=== PATIENT | female | born 1985 | race Caucasian/White ===

== ENCOUNTER 2021-03-23 16:17 | Outpatient (CLI) | payer OTHER, SELFPAY ==
[2021-03-23 16:36] LABS: Hematocrit 42.1 % (37.0-47.0); Mean Corpuscular HGB Conc 33.3 g/dl (32-36); Mean Corpuscular Hemoglobin 28.9 pg (26-34); Mean Corpuscular Volume 86.8 fl (80-100); Mean Platelet Volume 9.2 fl (7.4-10.4); Platelet Count Result 319 k/mm3 (150-375); Red Blood Count 4.85 M/mm3 (4.2-5.4); Red Cell Distribution Width 13.1 % (11.5-14.5); White Blood Count 10.6 K/mm3 (4.5-10.0)
[2021-03-23 16:50] LABS: Alanine Aminotransferase 24 U/L (4-35); Albumin Level 4.2 g/dL (3.5-5.1); Alkaline Phosphatase 93 U/L (38-126); Anion Gap 7 mmol/L (8-16); Aspartate Amino Transferase 28 U/L (14-36); Bilirubin,Total < 0.1 mg/dL (0.2-1.3); Blood Urea Nitrogen 12 mg/dL (7-17); Calcium 9.1 mg/dL (8.4-10.2); Carbon Dioxide 28 mmol/L (22-30); Chloride 104 mmol/L (98-107); Estimated Glomerular Filt Rate > 60; Glucose 103 mg/dL (65-105); Potassium 3.5 mmol/L (3.4-5.0); Sodium 139 mmol/L (137-145)
[2021-03-23 20:37] LABS: Erythrocyte Sedimentation Rate 17 mm/hr (0-20)
[2021-04-01 07:55] LABS: Tissue Transglutaminase IgG Ab 2 U/mL (<6)
[2021-04-01 07:56] LABS: Tissue Transglutaminase IgA Ab 1 U/mL (<4)
== END 2021-03-23 16:18 | disposition home or self-care (01) ==
LOC: ANHLAB 16:20
PROVIDERS: PCP Nurse Practitioner Family; Visit Provider Nurse Practitioner Family
DX: R14.0 Abdominal distension (gaseous) (principal); R19.7 Diarrhea, unspecified
CPT/HCPCS: 36415; 80053; 83516; 84443; 85027; 85652; 86140

== ENCOUNTER 2021-06-23 00:11 | Day surgery (SDC) | payer OTHER, SELFPAY ==
[2021-06-07 14:36] VITALS: BMI 28.2
[2021-06-23 08:08] VITALS: BP 122/69; PULSE 79; RESP 16; TEMP 36.1; O2SAT 98
[2021-06-23] MEDS: LACTATED RINGERS 1,000 ML 150 ML IV CONT (08:11)
--- NOTE | 2021-06-23 08:51 | P.PNAN_ITS ---
Anes - Initial Pre Proc Eval Procedure: Operation Date: 06/23/21 09:15 Proposed Procedures p Esophagogastroduodenoscopy & Colonoscopy - Luis Enrique Brown MD Date/Time: 06/23/21 08:51 Surgeon: Luis Enrique Brown MD Pre Op Diagnosis: gerd, change in bowel habit Patient Data Age: 35 Gender: F Height: 1.57 m Weight: 73.5 kg Last Vital Signs Temp 96.9 F L 06/23/21 08:08 Pulse 79 06/23/21 08:08 Resp 16 06/23/21 08:08 BP 122/69 06/23/21 08:08 Pulse Ox 98 06/23/21 08:08 Allergies Allergy/AdvReac Type Severity Reaction Status Date / Time No Known Allergies Allergy Verified 06/23/21 08:07 Home Medications Medication Instructions Recorded Confirmed Type dicyclomine 10 mg capsule See Rx Instructions .ROUTE 05/11/21 Rx .COMPLEX #90 cap Patient hx anesthesia problems: none Family hx anesthesia problems: none [facility] Past Medical History Medical History (Updated 04/27/21 @ 15:04 by Prudence Link APN-C) Abdominal bloating Alternating constipation and diarrhea BMI 30.0-30.9,adult Social History Social History Years smoked: 8 Smoking status: Never smoker Smokeless tobacco user: chewing tobacco Alcohol intake: never Substance use: never Gender identity (if verbalized by the patient): Female Anes - Eval Final PreProcedure Day of Procedure 06/23/21 08:51 Patient weight: overweight Heart: regular rate and rhythm Lungs: clear to auscultation Airway: Mallampati scale class II Neurological: alert and oriented Last oral intake: >/= 8 hours ASA classification: II Emergent: no Anesthetic plan: proceed Anesthesia type and monitoring: general GIVS and standard monitoring Informed Consent: The patient's anesthetic plan and its attendant risks and benefits were discussed with the patient/family/POA. Questions were solicited and answers provided to the satisfaction of the patient/family/POA.
--- NOTE | 2021-06-23 08:59 | PM.HPGS ---
History of Present Illness History of Present Illness Consent: Risks, benefits, and alternatives have been discussed and questions answered. Patient agrees to proceed with procedure. Chief complaint: gerd, change in bowel habit Narrative: Halle Vasquez is a 35 year old female with bloating, alternating diarrhea and constipation, bentyl prn but will get blurry vision Review of Systems Constitutional: Constitutional: Denies headache(s) and Denies weakness Eyes: Eyes: Denies blurry vision ENT: Reports Normal hearing present, Denies headache(s) and Denies neck pain Cardiovascular: Cardiovascular: Denies chest pain and Denies dyspnea Respiratory: Respiratory: Denies dyspnea Gastrointestinal: Gastrointestinal: Reports no additional gastrointestinal complaints Genitourinary: Genitourinary: Denies dysuria Musculoskeletal: Musculoskeletal: Denies neck pain Integumentary/Breasts: Skin/Breast: Denies dry skin Neurologic: Reports Normal hearing present, Denies headache(s) and Denies weakness Psychiatric: Psychiatric: Denies anxiety Endocrine: Endocrine: Denies change in body appearance Hematologic/Lymphatic: Hematologic/Lymphatic: Denies easy bleeding Allergic/Immunologic: Allergic/Immunologic: Denies urticaria [facility] Past Medical History Medical History (Updated 04/27/21 @ 15:04 by Prudence Link, SHOE WORKER-C) Abdominal bloating Alternating constipation and diarrhea BMI 30.0-30.9,adult Social History Social History Years smoked: 8 Smoking status: Never smoker Smokeless tobacco user: chewing tobacco Alcohol intake: never Substance use: never Gender identity (if verbalized by the patient): Female Meds Home Medications and Allergies Home Medications Medication Instructions Recorded Confirmed Type dicyclomine 10 mg capsule See Rx Instructions .ROUTE 05/11/21 Rx .COMPLEX #90 cap Allergies Allergy/AdvReac Type Severity Reaction Status Date / Time No Known Allergies Allergy Verified 06/23/21 08:07 Vital Signs Vital Signs - 24 hr 06/23/21 08:08 Temperature 96.9 F L Pulse Rate 79 Respiratory Rate 16 Blood Pressure 122/69 Pulse Oximetry 98 Exam Const: General: comfortable and no acute distress HENMT: General nose exam: Normal nares present Eyes: General: appearance normal, both eyes and all related structures Neck: Neck: no JVD Resp: Auscultation: clear to auscultation bilaterally Cardio: Rate: regular rate Rhythm: regular rhythm GI: Inspection: non-distended GI Palp: Yes Soft to palpation Skin: General skin exam: normal color Neuro: General: gait normal Speech: normal speech Extrem: General: normal to inspection Psych: Mental Status: mental status grossly normal Assessment and Plan Assessment and plan (1) Alternating constipation and diarrhea: Code(s): R19.8 - Other specified symptoms and signs involving the digestive system and abdomen Status: Acute Assessment and Plan: colonoscopy with random bx (2) Abdominal bloating: Code(s): R14.0 - Abdominal distension (gaseous) Status: Acute Assessment and Plan: egd with bx
[2021-06-23] MEDS: BENZOCAINE (*SP) 60 ML SPRAY CAN (HURRICAINE) 1 SPRAY MUCOUS MEM (09:05)
[2021-06-23 09:30] VITALS: BP 91/59; PULSE 102; RESP 27; O2SAT 95
[2021-06-23 09:40] VITALS: BP 102/61; PULSE 99; RESP 27; O2SAT 98
[2021-06-23 09:50] VITALS: BP 96/60; PULSE 78; RESP 19; O2SAT 99
== END 2021-06-23 09:55 | disposition home or self-care (01) ==
PROVIDERS: PCP Nurse Practitioner Family; Visit Provider Internal Medicine Gastroenterology
PROC: 0DJ08ZZ Inspection of Upper Intestinal Tract, Via Natural or Artificial Opening Endoscopic (ICD-10-PCS; CPT 43235; principal; 2021-06-23 09:15)
DX: Z12.11 Encounter for screening for malignant neoplasm of colon (principal); K29.50 Unspecified chronic gastritis without bleeding; R19.7 Diarrhea, unspecified; K59.00 Constipation, unspecified; K64.8 Other hemorrhoids; R14.0 Abdominal distension (gaseous); K44.9 Diaphragmatic hernia without obstruction or gangrene; Z87.19 Personal history of other diseases of the digestive system
CPT/HCPCS: 45380; 43239; 88305; J2704; J7120

== ENCOUNTER 2021-08-31 11:12 | Emergency (ER) | payer OTHER, SELFPAY ==
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
[2021-08-31 12:15] VITALS: BP 110/70; PULSE 72; RESP 16; TEMP 36.8; O2SAT 98
== END 2021-08-31 13:05 | disposition home or self-care (01) ==
PROVIDERS: Emergency Provider Family Medicine
DX: M62.838 Other muscle spasm (principal); H93.11 Tinnitus, right ear; F17.220 Nicotine dependence, chewing tobacco, uncomplicated; V49.40XA Driver injured in collision with unspecified motor vehicles in traffic accident, initial encounter
CPT/HCPCS: 99283

== ENCOUNTER 2021-10-11 10:40 | Outpatient (CLI) | payer OTHER, SELFPAY | END 2021-10-11 10:41 | disposition home or self-care (01) | LOC: ANHAUDIO 10:41 | PROVIDERS: Visit Provider Nurse Practitioner Family | DX: H90.41 Sensorineural hearing loss, unilateral, right ear, with unrestricted hearing on the contralateral side (principal) | CPT/HCPCS: 92557; 92567 ==

== ENCOUNTER 2021-10-24 13:34 | Outpatient (CLI) | payer OTHER, SELFPAY ==
--- NOTE | ~2021-10-24 | CT_ITS ---
EXAMINATION: CT IAC/mastoids BI wo con DATE: 10/24/2021 14:00 INDICATION: Pulsatile tinnitus, right ear. TECHNIQUE: Computed tomography (CT) of the temporal bones was performed without intravenous contrast. Automated exposure control and iterative reconstruction technique were employed. The dose-length pro duct was 253.03 mGy-cm. COMPARISON: None FINDINGS: There are mucous retention cyst in right maxillary sinus. RIGHT TEMPORAL BONE: The internal auditory canal, cochlea, vestibule, semicircular canals, vestibular aqueduct, carotid ca nal, jugular bulb, facial nerve course, ossicles, Prussak space, scutum, tympanic membrane, mastoid a ir cells, and external auditory canal are normal. LEFT TEMPORAL BONE: The internal auditory canal, cochlea, vestibule, semicircular canals, vestibular aqueduct, carotid ca nal, jugular bulb, facial nerve course, ossicles, Prussak space, scutum, tympanic membrane, mastoid a ir cells, and external auditory canal are normal. IMPRESSION: 1. Normal temporal bones. Reviewed, dictated and finalized at location A. CAL OFFICE ADMINISTRATOR IMPRESSION: 1. Normal temporal bones.
== END 2021-10-24 13:35 | disposition home or self-care (01) ==
LOC: ANHIMG 13:41
PROVIDERS: PCP Nurse Practitioner Family; Visit Provider Nurse Practitioner Family
DX: H93.A1 Pulsatile tinnitus, right ear (principal)
CPT/HCPCS: 70480

== ENCOUNTER 2021-11-06 10:59 | Outpatient (CLI) | payer OTHER, SELFPAY | END 2021-11-06 11:00 | disposition home or self-care (01) | LOC: ANHSURGERY 11:03 | PROVIDERS: Visit Provider Obstetrics & Gynecology | DX: R10.2 Pelvic and perineal pain (principal) | CPT/HCPCS: 36415; 86850; 86900; 86901 ==

== ENCOUNTER 2021-11-13 01:30 | Day surgery (SDC) | payer OTHER, SELFPAY ==
[2021-11-03 14:25] VITALS: BMI 30.2
--- NOTE | 2021-11-03 14:41 | PC.NURSE ---
Report to the Outpatient Waiting Room, entrance under the green pavilion located off [facility], at time 7:00 on date 11/13/21. OR Time: 9:00. - You and your visitor will be asked a series of questions to screen for COVID 19 for your protection. - A mask is required within the hospital. - Only one visitor is allowed at this time. Patient visitors will be guided where to wait when not with patient. Preoperative COVID Testing Requirements: No COVID Test needed if: (proof is required; if not received patient will have Rapid Test prior to entry) - Patient has received COVID Vaccine at least 14 days prior to procedure date or - Patient has positive COVID test result within last 90 days of surgery date. COVID Test needed if above criteria is not met If not COVID vaccinated a COVID test must be conducted within 72 hours of surgery and patient is asked to isolate self from time of testing until procedure. You will go to the [facility] for your COVID testing. The [facility] is located at the corner of [address] [facility]. You will only be called if COVID results are positive and your surgeon may reschedule your elective surgery date. Patients may have clear liquids (water, carbonated beverages, clear teas, apple juice) until 3 hours prior to surgery with a maximum of 20 ounces. - No food from midnight until time of surgery - Infants may have breast milk until 4 hours before surgery, infant formula 6 hours prior to surgery. - Children will be allowed to drink immediately following surgery. If applicable, please bring a bottle or sippy cup to assist with drinking. Juice, water, soda, and popsicles are readily available. For infants on formula, please bring formula the day of surgery. Pacifiers are allowed. Take the following medications with a SIP of water the morning of surgery: NONE Medications to discontinue per physician: N/A Date to take last dose: N/A Please no make-up, nail montserratian, hairspray, perfume, deodorant, or body powder the day of surgery. No jewelry (including any body piercings) or valuables the day of surgery, leave them at home. Please take a shower or bath the night before, or the morning of, surgery with an antibacterial soap. Wear comfortable, loose fitting clothing. Children are encouraged to wear pajamas. - Jewelry must be removed prior to entering the operating room. Rings and piercings that are not removed may be cut off. - The hospital will not accept responsibility for valuables. - Please leave all valuables, including medications, at home the day of surgery. If you are going home after surgery, a licensed route driver must drive you home. - NO public transportation without another adult. - We recommend that an adult stay with you for 24 hours following discharge. - We also recommend that you do not drive, make important decision, drink alcoholic beverages, or take any drugs that were not prescribed by your health care provider for at least 24 hours after your discharge time. For Pediatric surgeries, we recommend two adults accompany the child home (only one inside the building at this time). Follow any additional instructions given to you from your surgeon. Telephone instructions given to GEOFFREY FREDERICK and asked if any additional questions and then verbalized understanding. Patient advised to call surgeon office or pre surgery nurse liaison [phone] if any additional questions.
--- NOTE | 2021-11-07 16:03 | PM.IMHP ---
H&P: HPI History of Present Illness Date/Time: 11/07/21 16:03 36-year-old 2 para 2 status post hysterectomy admitted for diagnostic laparoscopy. She has a history of endometriosis. She has a surgically proven history of endometriosis. Ultrasound was unremarkable. As she continues with severe pain and dyspareunia she is will undergo diagnostic laparoscopy. Risks and benefits reviewed including but not exclusive of , aspiration pneumonia, bleeding, transfusion, perforation injury to bowel, bladder, ureters, or other internal organs with need for open laparotomy. She received the [employer] handout entitled laparoscopy. She had all questions answered and asked to proceed Chief Complaint: Pelvic pain and dyspareunia Review of Systems Review of Systems: All systems reviewed & are unremarkable except as noted in HPI and below PMFSH Past Medical History Medical History Abdominal bloating Alternating constipation and diarrhea BMI 30.0-30.9,adult Social History Social History Years smoked: 5 Smoking status: Former smoker Tobacco type: cigarettes Smokeless tobacco user: chewing tobacco Smoking end date: 04/25/21 Alcohol intake: never Substance use: never Substance use type: does not use Gender identity (if verbalized by the patient): Female Spiritual care concerns: No Meds Home Medications and Allergies Home Medications Medication Instructions Recorded Confirmed Type No Home Medications 11/03/21 11/03/21 History Allergies Allergy/AdvReac Type Severity Reaction Status Date / Time No Known Allergies Allergy Verified 11/03/21 14:24 Exam Const: General: no acute distress Eyes: General: appearance normal, both eyes and all related structures Neck: Neck: supple and no JVD Thyroid: thyroid normal Resp: Effort & Inspection: normal respiratory effort Auscultation: clear to auscultation bilaterally Cardio: Rate: regular rate Rhythm: regular rhythm GI: Inspection: non-distended GI Palp: Yes Soft to palpation, No Tenderness to palpation present (GI) and No Guarding due to palpation present (GI) Auscultation: normal bowel sounds : External Female Exam: normal external appearance Speculum Exam - Vagina: normal appearance of the vagina Speculum Exam - Cervix: Cervix absent Bimanual exam- vagina & uterus: uterus absent Bimanual Exam- Adnexa, other: tender bilaterally Skin: General skin exam: no rashes or lesions noted Extrem: General: normal to inspection and no edema Psych: Mental Status: mental status grossly normal Affect: normal affect Assessment and Plan Additional Plan Impression: Pelvic pain in a patient with a history of endometriosis and status post hysterectomy Plan: Diagnostic laparoscopy
[2021-11-13] VITALS (9 sets, daily range): BP systolic 93–119; BP diastolic 59–72; PULSE 66–117; RESP 15–21; TEMP 36.1; O2SAT 97–100
--- NOTE | 2021-11-13 07:15 | WPDHPUPDATE1 ---
History and Physical Update Update Date/Time: 11/13/21 07:15 History and Physical has been reviewed, including an updated exam of the patient. There are NO changes in the patient's condition. Risks, benefits, and alternatives have been discussed and questions answered. Patient agrees to proceed with procedure.
[2021-11-13] MEDS: ACETAMINOPHEN 500 MG TABLET 1000 MG PO (07:23)
[2021-11-13] MEDS: KETOROLAC 15 MG/ML VIAL (*BKC) IV PUSH (07:46)
[2021-11-13] MEDS: LACTATED RINGERS 1,000 ML 30 ML IV CONT ×2 (08:00→10:57)
--- NOTE | 2021-11-13 08:44 | WPDANESEPPF ---
Anes - Initial Pre Proc Eval Procedure: Operation Date: 11/13/21 09:00 Proposed Procedures p Diagnostic Laparoscopy - Thanh Headley MD Date/Time: 11/13/21 08:44 Surgeon: Thanh Headley MD Pre Op Diagnosis: Pelvic Pain, Hx of Endometriosis Patient Data Age: 36 Gender: F Height: 1.57 m Weight: 78.2 kg Last Vital Signs Temp 36.1 C L 11/13/21 07:20 Pulse 66 11/13/21 07:20 Resp 16 11/13/21 07:20 BP 105/67 11/13/21 07:20 Pulse Ox 98 11/13/21 07:20 Allergies Allergy/AdvReac Type Severity Reaction Status Date / Time No Known Allergies Allergy Verified 11/13/21 07:20 Home Medications Medication Instructions Recorded Confirmed Type hydrocodone-acetaminophen 1 tablet PO Q4H PRN #30 tablet 11/13/21 Rx Patient hx anesthesia problems: none Family hx anesthesia problems: none Results Review: All pre-operative results and documents have been reviewed as part of the pre-operative evaluation. [facility] Past Medical History Medical History Abdominal bloating Alternating constipation and diarrhea BMI 30.0-30.9,adult Social History Social History Years smoked: 5 Smoking status: Former smoker Tobacco type: cigarettes Smokeless tobacco user: chewing tobacco Smoking end date: 04/25/21 Alcohol intake: never Substance use: never Substance use type: does not use Living arrangements: with family Gender identity (if verbalized by the patient): Female Spiritual care concerns: No Anes - Eval Final PreProcedure Day of Procedure 11/13/21 08:44 Patient weight: obese Heart: regular rate and rhythm Lungs: clear to auscultation and normal air movement Airway: Mallampati scale class II Neurological: alert and oriented Last oral intake: >/= 8 hours ASA classification: II Emergent: no Anesthetic plan: proceed Anesthesia type and monitoring: general ETT Results Review: All pre-operative results and documents have been reviewed as part of the pre-operative evaluation. Informed Consent: The patient's anesthetic plan and its attendant risks and benefits were discussed with the patient/family/POA. Questions were solicited and answers provided to the satisfaction of the patient/family/POA.
[2021-11-13] MEDS: ceFAZolin SODIUM 1 GM VIAL 2 GM IV PUSH (08:56)
--- NOTE | 2021-11-13 09:36 | W.PM.PROC2 ---
Procedure Note - Detailed Date of Procedure 11/13/21 Pre-op Diagnosis Pelvic Pain, Hx of Endometriosis Post-op Diagnosis same Procedure Performed Laparoscopy with destruction of endometriosis and lysis of adhesions Surgeon Thanh Headley MD Anesthesia general Indications this is a 36-year-old female status post hysterectomy with only ovaries remaining with the pelvic pain and dyspareunia Findings absent uterus and tubes. Normal-appearing ovaries. Some adhesions from the omentum to the vaginal cuff. Two small powder burn endometriosis areas along each uterosacral ligament Description of Procedure patient was prepped and draped in the normal sterile fashion placed in dorsal lithotomy position. Under excellent general trach anesthesia weighted speculum placed post were vagina. Sponge stick was placed in bladder drained of clear urine. The weighted speculum was removed and gloves were changed. An infraumbilical incision made the Veress needle passed in the abdomen. Abdomen filled with CO2 gas to 15mm Hg. The 5mm trocar advanced under direct visualization assuring no injury. The patient placed in Trendelenburg and a suprapubic incision made. The 5mm trocar advanced under direct visualization assuring no injury. The above findings were seen in photo documentation was undertaken the omentum was adherent to the vaginal cuff and this was sharply dissected without difficulty. Two small areas of powder burn endometriosis were seen along and left uterosacral ligament these were cauterized at 35 w per 2nd with monopolar cautery. Irrigation undertaken to clear. The ovaries remained and appeared completely normal. The procedure was stopped. The gas removed from the abdomen and the trocars removed from the abdomen. The incisions closed with 4 O Monocryl and glue. The patient was awakened and went to recovery in satisfactory condition. All sponge, all needle, instrument counts were correct. There were no immediate complications Estimated Blood Loss 5 Drains No Packing No Pathology none sent Complications No immediate complications Condition stable Disposition PACU
[2021-11-13] MEDS: fentaNYL CITRATE INJ (*CRX) 100 MCG/2 ML VIAL 25 MCG IV PUSH (10:28)
== END 2021-11-13 12:10 | disposition home or self-care (01) ==
PROVIDERS: Visit Provider Obstetrics & Gynecology
PROC: (CPT 49320; principal; 2021-11-13 09:00)
DX: R10.2 Pelvic and perineal pain (principal); N80.3 Endometriosis of pelvic peritoneum; N73.6 Female pelvic peritoneal adhesions (postinfective); Z90.710 Acquired absence of both cervix and uterus; Z87.891 Personal history of nicotine dependence; E66.9 Obesity, unspecified; Z68.31 Body mass index [BMI] 31.0-31.9, adult
CPT/HCPCS: 58662; A9270; J0330; J0690; J1100; J1170; J1885; J2250; J2405; J2704; J2710; J3010; J7030; J7120

== ENCOUNTER 2022-08-08 15:00 | Outpatient (CLI) | payer OTHER, SELFPAY ==
--- NOTE | ~2022-08-08 | CT_ITS ---
EXAMINATION: CTA brain carotid DATE: 08/08/2022 15:36 INDICATION: Pulsatile tinnitus of right ear. TECHNIQUE: Computed tomographic angiography (CTA) of the head was performed without and with 100 mL O mnipaque-350 intravenous contrast. CTA of the neck was performed with intravenous contrast. Automated exposure control and iterative reconstruction technique were employed. The dose-length product was 1 618.14 mGy-cm. Maximum intensity projection and volume rendered 3D-reconstructions were created by nely oliveira technologist on a separate workstation. COMPARISON: Temporal bone CT 10/24/2021 FINDINGS: HEAD CTA: There is no intracranial hemorrhage, acute infarction, or abnormal intracranial mass lesion . The ventricles are normal in size. There are mucous retention cysts in right maxillary sinus. The m astoid air cells are normal. The orbits are normal. Right vertebral artery is dominant. There is no s ignificant stenosis of basilar artery or the posterior cerebral arteries. There is no significant jairon nosis of the intracranial internal carotid arteries or anterior or middle cerebral arteries. Anterior communicating artery is normal. There is no aneurysm. The posterior communicating arteries are jignesh l. NECK CTA: There is mild scarring at the lung apices. There are no pathologically enlarged lymph nodes . There is no significant stenosis of the vertebral arteries. There is no visible plaque in the proxi mal internal carotid arteries. There is 0% stenosis of the proximal right internal carotid artery rel ative to normal distal artery lumen diameter (NASCET criteria). There is 0% stenosis of the proximal left internal carotid artery relative to normal distal artery lumen diameter. The bones are unremarka ble. IMPRESSION: 1. Normal brain. No aneurysm or significant intracranial arterial stenosis. 2. 0% stenosis of the proximal internal carotid arteries relative to normal distal artery lumen diame ters (NASCET criteria). Reviewed, dictated and finalized at location A. IMPRESSION: 1. Normal brain. No aneurysm or significant intracranial arterial stenosis. 2. 0% stenosis of the proximal internal carotid arteries relative to normal dis ian artery lumen diameters (NASCET criteria).
== END 2022-08-08 15:01 | disposition home or self-care (01) ==
LOC: ANHIMG 15:04
DX: H93.A1 Pulsatile tinnitus, right ear (principal)
CPT/HCPCS: 70496; 70498; Q9967

== ENCOUNTER 2022-12-03 09:59 | Emergency (ER) | payer OTHER, SELFPAY ==
[2022-12-03] VITALS (25 sets, daily range): BP systolic 84–121; BP diastolic 52–77; PULSE 60–76; RESP 12–24; TEMP 36.1; O2SAT 94–100
--- NOTE | ~2022-12-03 | XR_ITS ---
EXAMINATION: XR chest 2V DATE: 12/03/2022 10:26 INDICATION: Left-sided chest pain TECHNIQUE: PA and lateral views of the chest are obtained. COMPARISON: 09/28/2020 FINDINGS: The lungs are free of acute opacities. No pleural effusion or pneumothorax. The cardiomedia stinal silhouette is normal. There is moderate thoracic spondylosis. IMPRESSION: 1. No acute cardiopulmonary abnormality. Reviewed, dictated and finalized at location B. [facility]AIS[facility]
--- NOTE | 2022-12-03 10:03 | ECG_ITS ---
Measurements Intervals [place] Rate: 64 P: 48 NM: 172 QRS: 72 QRSD: 98 T: 53 QT: 402 QTc: 416 Interpretive Statements SINUS RHYTHM INCOMPLETE RIGHT BUNDLE BRANCH BLOCK ST-T WAVE ABNORMALITY IN ANTERIOR LEADS- CONSIDER ISCHEMIA ABNORMAL ECG NO PREVIOUS ECG AVAILABLE FOR COMPARISON Electronically Signed On 12-03-2022 10:29:49 GRANTS MANAGER by Anil Henning D.O.
[2022-12-03 10:19] LABS: Basophils Percent Auto 0.2 % (0.2-1.2); Eosinophils Absolute Auto 0.1 K/mm3 (0-0.3); Eosinophils Percent Auto 1.7 % (0-4.4); Hematocrit 41.4 % (37.0-47.0); Immature Granulocyte Absolute 0.02 K/mm3 (0.00-0.031); Immature Granulocyte Percent A 0.3 % (0-0.5); Lymphocytes Absolute Auto 2.15 K/mm3 (0.9-3.2); Lymphocytes Percent Auto 32.7 % (18.3-44.2); Mean Corpuscular HGB Conc 33.8 g/dl (32-36); Mean Corpuscular Hemoglobin 29.1 pg (26-34); Mean Corpuscular Volume 86.1 fl (80-100); Mean Platelet Volume 8.9 fl (7.4-10.4); Monocytes Absolute Auto 0.4 K/mm3 (0.1-0.6); Monocytes Percent Auto 5.8 % (2.6-8.5); Neutrophils Absolute Auto 3.9 K/mm3 (1.3-6.7); Neutrophils Percent Auto 59.3 % (45.5-73.1); Platelet Count Result 348 k/mm3 (150-375); Red Blood Count 4.81 M/mm3 (4.2-5.4); White Blood Count 6.6 K/mm3 (4.5-10.0)
[2022-12-03 10:29] LABS: Alanine Aminotransferase 26 U/L (6-35); Albumin Level 4.2 g/dL (3.5-5.1); Alkaline Phosphatase 105 U/L (38-126); Anion Gap 7 mmol/L (8-16); Aspartate Amino Transferase 28 U/L (14-36); Bilirubin,Total 0.3 mg/dL (0.2-1.3); Blood Urea Nitrogen 9 mg/dL (7-17); Calcium 8.7 mg/dL (8.4-10.2); Carbon Dioxide 24 mmol/L (22-30); Chloride 102 mmol/L (98-107); Estimated CRCL calculation 106 ml/min; Estimated Glomerular Filt Rate > 60; Glucose 92 mg/dL (65-110); Lipase 49 U/L (23-300); Potassium 3.8 mmol/L (3.4-5.0); Sodium 133 mmol/L (137-145)
[2022-12-03 10:32] LABS: Prothrombin Time 12.9 Seconds (11.1-14.7)
[2022-12-03 10:33] LABS: Partial Thromboplastin Time 32.5 SECONDS (22.3-36.8)
[2022-12-03 10:40] LABS: Troponin I < 0.012 ng/mL (0.000-0.034)
[2022-12-03] MEDS: ASPIRIN 81 MG CHEWABLE TABLET 324 MG PO (11:07)
--- NOTE | 2022-12-03 11:08 | ED.CHESTPAIN ---
HPI - Chest Pain General Chief Complaint: Chest Pain Stated Complaint: chest pain Time Seen by Provider: 12/03/22 10:46 Source: patient Mode of arrival: ambulatory Limitations: no limitations History of Present Illness HPI narrative: Patient is a 37-year-old female who presents the ED with report of chest pain. Patient reports she developed left-sided chest pain on Saturday. Pain is described as a sharp electrical type sensation through her left breast and is very brief, lasting for seconds or so before resolving. No significant aggravating factors, pain occurs randomly. She has not tried anything for the pain. She was seen at an outside ED on Saturday and her work-up was unremarkable at that time. Patient also reports having SOB over the last several days, worse with laying flat. She states her oxygen dropped into the 70s via a finger pulse oximeter while at home. Denies significant aggravation of SOB with exertion. Patient is scheduled to see Dr. Schultz on Saturday. 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 Patient reports a family history of coronary disease in her mother in her 30s, she denies history of hypertension, hyperlipidemia, diabetes mellitus, smoking, history of DVT or PE. No recent long distance travel, calf pain or swelling. Denies recent cough or cold symptoms, fever, abdominal pain, nausea, vomiting. Related Data Home Medications Medication Instructions Recorded Confirmed spironolactone 100 mg tablet 100 mg PO BID 09/18/22 Allergies Allergy/AdvReac Type Severity Reaction Status Date / Time No Known Allergies Allergy Verified 10/23/22 15:50 Review of Systems Review of Systems: CONSTITUTIONAL: Denies fever, chills, or sweats. ENT: Denies rhinorrhea, congestion, sore throat. CARDIOVASCULAR: See HPI. RESPIRATORY: See HPI. GASTROINTESTINAL: Denies abdominal pain, nausea, vomiting, or diarrhea. SKIN: Denies rash or itching. MUSCULOSKELETAL: Denies back pain, joint pain, or myalgia. NEUROLOGIC: Denies headache, numbness, or weakness. All systems reviewed & are unremarkable except as noted in HPI and below PMFSH Past Medical History Medical History (Updated 12/03/22 @ 13:29 by Maribeth Dean PA-C) Abdominal bloating Alternating constipation and diarrhea Anxiety Migraines Pulsatile tinnitus Surgical History Surgical History H/O: hysterectomy Family History Family History Father Depression Heart disease Mother Cancer Depression Heart disease Social History Social History Years smoked: 5 Smoking status: Former smoker Tobacco type: cigarettes Smokeless tobacco user: chewing tobacco Smoking end date: 04/25/21 Alcohol intake: never Substance use: never Substance use type: does not use 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 HEAD: Normocephalic, atraumatic. NECK: Supple. No adenopathy, no masses. RESPIRATORY: Airway patent, respirations nonlabored. Clear to auscultation bilaterally, no rales, rhonchi, wheezing. CARDIOVASCULAR: Regular rate and rhythm without murmurs, rubs, or gallops. Peripheral pulses 2+ and equal bilaterally. ABDOMINAL: Soft, nontender, nondistended, no hepatosplenomegaly. Normoactive BS. MUSCULOSKELETAL: Moves all extremities. Strength/ROM intact without gross deformities. No edema. No calf tenderness. SKIN: Warm, dry, normal color. No rashes. NEURO: A&O X3. Speech clear. Cranial nerves II-XII grossly intact. Steady gait. No ataxic movements. PSYCHIATRIC: Appropriate mood and affect. Normal interaction. Course Vital Signs Vital signs: Vi
[2022-12-03 12:14] LABS: D Dimer 0.31 ug/mL (<0.48)
[2022-12-03 12:44] LABS: Lipase 47 U/L (23-300)
[2022-12-03 13:38] LABS: Troponin I < 0.012 ng/mL (0.000-0.034)
== END 2022-12-03 14:21 | disposition home or self-care (01) ==
PROVIDERS: Emergency Medicine; Emergency Provider Physician Assistant; PCP Family Medicine
DX: R07.89 Other chest pain (principal); I45.10 Unspecified right bundle-branch block; R94.31 Abnormal electrocardiogram [ECG] [EKG]; Z87.891 Personal history of nicotine dependence
CPT/HCPCS: 36415; 71046; 80053; 83690; 84484; 85025; 85380; 85610; 85730; 93005; 99284; A9270

== ENCOUNTER 2023-02-09 15:14 | Emergency (ER) | payer OTHER, SELFPAY ==
--- NOTE | 2023-02-09 15:43 | ED.GENADULT ---
HPI - General Adult General Chief complaint: Upper Respiratory Infection Stated complaint: Sore Throat Time Seen by Provider: 02/09/23 15:44 Source: patient Mode of arrival: ambulatory Limitations: no limitations History of Present Illness HPI narrative: 37-year-old female patient presents to [facility] with complaints of sore throat that started this morning. Patient is bringing in her daughter which she highly suspect has strep so she went to come and get checked out as well since she started having sore throat. Fevers, body aches or chills. Denies any runny nose, sneezing or any other symptoms at this time. Related Data Allergies Allergy/AdvReac Type Severity Reaction Status Date / Time No Known Allergies Allergy Verified 02/09/23 15:55 Review of Systems Review of Systems: CONSTITUTIONAL: Denies fever, chills, or sweats. EYES: Denies visual changes, redness, or discharge. ENT: Denies rhinorrhea, congestion, Positive sore throat, or otalgia. CARDIOVASCULAR: Denies chest pain, palpitations, or edema. RESPIRATORY: Denies cough or dyspnea. GASTROINTESTINAL: Denies abdominal pain, nausea, vomiting, or diarrhea. GENITOURINARY: Denies dysuria or hematuria. SKIN: Denies rash or itching. MUSCULOSKELETAL: Denies back pain, joint pain, or myalgia. NEUROLOGIC: Denies headache, numbness, or weakness. PSYCHIATRIC: Denies anxiety or depression. COUNT INCLUDES THE [facility] Past Medical History Medical History Abdominal bloating Alternating constipation and diarrhea Anxiety Migraines Pulsatile tinnitus Surgical History Surgical History H/O: hysterectomy Family History Family History Father Depression Heart disease Mother Cancer Depression Heart disease Social History Social History Years smoked: 5 Smoking status: Former smoker Tobacco type: cigarettes Smokeless tobacco user: chewing tobacco Smoking end date: 04/25/21 Alcohol intake: never Substance use: never Substance use type: does not use Living arrangements: with family Occupation/Education: occupation 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 There is no relevant family history pertinent to the presenting complaint. Exam Narrative: GENERAL: Well-appearing, well-nourished, and in no acute distress. HEAD: Normocephalic, atraumatic. EYES: PERRLA and EOMI. ENT: Nares clear, no rhinorrhea or epistaxis. Mucous membranes moist. posterior pharynx with erythema noted 1+ tonsil enlargement. No exudates or lesions present. NECK: Supple. No lymphadenopathy CHEST: Clear to auscultation. No respiratory distress. HEART: Regular rate and rhythm. No murmur heard. Normal peripheral pulses. ABDOMEN: Soft, nontender, nondistended, normal active bowel sounds. EXTREMITIES: Normal range of motion. No edema. SKIN: Warm, dry, no rash. NEURO: No focal deficits. Alert and oriented x3. Course Course Level of Care: Express Care Visit Reevaluation(s) Reevaluation #1: Discussed with patient that her strep test today is negative however given the fact that her daughter did come up positive today and she has very similar symptoms years ago ahead and treat her with antibiotics today. Patient aware plan care denies any other questions or concerns Date: 02/09/23 Time: 16:09 Vital Signs Vital signs: Vital Signs Temperature 36.1 C L 02/09/23 15:52 Pulse Rate 90 02/09/23 15:52 Respiratory Rate 18 02/09/23 15:52 Blood Pressure 105/63 02/09/23 15:52 Pulse Oximetry 100 02/09/23 15:52 Oxygen Delivery Room Air 02/09/23 15:52
[2023-02-09 15:52] VITALS: BP 105/63; PULSE 90; RESP 18; TEMP 36.1; O2SAT 100
== END 2023-02-09 16:15 | disposition home or self-care (01) ==
PROVIDERS: Emergency Provider Nurse Practitioner Family; PCP Family Medicine
DX: J03.90 Acute tonsillitis, unspecified (principal); Z87.891 Personal history of nicotine dependence
CPT/HCPCS: 87880; 99213; G0463

== ENCOUNTER 2025-01-20 14:13 | Outpatient (CLI) | payer OTHER, SELFPAY ==
[2025-01-20 15:06] LABS: Basophils Percent Auto 0.2 % (0.2-1.2); Eosinophils Absolute Auto 0.1 K/mm3 (0-0.3); Eosinophils Percent Auto 1.3 % (0-4.4); Hematocrit 43.8 % (37.0-47.0); Hemoglobin 14.7 g/dL (12.0-15.0); Immature Granulocyte Absolute 0.05 K/mm3 (0.00-0.031); Immature Granulocyte Percent A 0.5 % (0-0.5); Lymphocytes Absolute Auto 2.29 K/mm3 (0.9-3.2); Mean Corpuscular HGB Conc 33.6 g/dl (32-36); Mean Corpuscular Hemoglobin 28.9 pg (26-34); Mean Corpuscular Volume 86.1 fl (80-100); Monocytes Absolute Auto 0.6 K/mm3 (0.1-0.6); Monocytes Percent Auto 6.1 % (2.6-8.5); Neutrophils Absolute Auto 7.3 K/mm3 (1.3-6.7); Neutrophils Percent Auto 69.9 % (45.5-73.1); Platelet Count Result 370 k/mm3 (150-375); Red Blood Count 5.09 M/mm3 (4.2-5.4); Red Cell Distribution Width 13.3 % (11.5-14.5); White Blood Count 10.4 K/mm3 (4.5-10.0)
[2025-01-20 15:37] LABS: Vitamin D 25 Hydroxy 57.9 ng/mL
--- OUTSIDE RECORDS SUMMARY | 2025-01-20 16:17 | XMS_ITS | Clinical Summary ---
Author Organization [facility] at the Medical Office Building Address [address] [place] [address] Care Team Providers Care Supervisor Fish [employer]cher[employer] Name Role Phone Uriel Joshi MD Primary Care Provider [phone] Anil Henning DO Unavailable [phone] Allergies No known active allergies Medications spironolactone (ALDACTONE) 100 mg tabletIndicatio ns:Polycystic Ovarian Syndrome,acne Take 1 tablet (100 mg total) by mouth 2 (two) times a day 2 Active sertraline (ZOLOFT) 25 mg tabletIndicatio ns:Generalized Anxiety Disorder Take 1 tablet (25 mg total) by mouth every morning Active ALPRAZolam (XANAX) 1 mg tabletIndicatio ns:anxiety Take 1 tablet (1 mg total) by mouth 3 (three) times a day as needed 3 Active dicyclomine (BENTYL) 10 mg capsuleIndicati ons:Abdominal Pain with Cramps Take 1 capsule (10 mg total) by mouth 3 (three) times a day as needed 3 Active cholecalciferol (VITAMIN D-3) 5,000 unit tabletIndicatio ns:Prevention of Vitamin D Deficiency Take 1 tablet (5,000 Units total) by mouth every morning Active diphenhydrAMINE 25 mg capsule Take 1 tablet/capsule (25 mg total) by mouth every 8 (eight) hours 90 tablet/capsu le 3 Active Additional Information Patient taking differently:25 mg oralAs needed, sleep, itching, Informant: Self, Reported on 07/22/2023 aspirin 81 MG oral suspension 3 Active amoxicillin-cla vulanate (AUGMENTIN) 875-125 mg per tablet Take 1 tablet by mouth 2 (two) times a day 3 Active methylPREDNISol one (MEDROL DOSEPACK) 4 mg Dosepack TAKE 6 TABLETS ON DAY 1 DIRECTED ON PACKAGE AND DECREASE BY 1 TAB EACH DAY FOR A TOTAL OF 6 DAYS 3 Active phentermine 37.5 mg capsule TAKE 1 CAPSULE BY MOUTH EVERY DAY .MUST TAKE 30 MINUTES BEFORE OR 1-2 HOURS AFTER BREAKFAST 3 Active promethazine-DM (PROMETHAZINE-D M) 1.25-3 mg/mL syrup Take 5 mL by mouth 4 (four) times a day as needed for cough 118 mL 3 Active benzonatate (TESSALON) 100 mg capsule TAKE 1 CAPSULE BY MOUTH 3 TIMES A DAY NEEDED FOR COUGH 3 Active metFORMIN XR (GLUCOPHAGE XR) 500 mg 24 hr tablet Take 1 tablet (500 mg total) by mouth daily 3 Active Active Problems Problem Noted Date Diagnosed Date Pulsatile tinnitus 07/24/2023 Idiopathic intracranial hypertension 07/23/2023 Other chest pain 12/07/2022 Pulsatile tinnitus of right ear 06/29/2022 Assessment & Plan (05/13/2023 3:14 PM CDT): Referred with concern for papilledema. No evidence of papilledema on exam. Full EOMS and excellent afferent function. BCVA 20/20- right eye (OD) and 20/20 left eye (OS). Educated on reassuring findings. Pt has blur worse on computer which improves with specs that are old. Recommended updating lenses and wearing prior to next appt to determine if blur improves. 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 05/03/2022 Surgical History Surgery Date Site/Laterality Comments HYSTERECTOMY 11/25/2019 - 11/24/2020 OTHER SURGICAL HISTORY ovarian surgery COLONOSCOPY UPPER GASTROINTESTINAL ENDOSCOPY ANGIO SELECTIVE INTERNAL CAR OTID LEFT 02/04/2024 Left Medical History Medical History Date Comments Dizziness Migraine Family History Medical History Relation Name Comments No Known Problems Father No Known Problems Mother Anesthesia problems Neg Hx Relation Name Status Comments Father Mother Social History Tobacco Use Types Packs/Day Years Used Date Smoking Tobacco: Former Cigarettes Q uit: 06/2021 AUDIT-C Answer Date Recorded Frequency of Alcohol Consumption Not on file 07/22/2023 Q2: How many drinks containi ng alcohol do you have on a typical day when you are drinking? Patient does not drink Frequency of Binge Drinking Not on file 06/26 Personal Safety Answer Date Recorded Have you ever been in or are you currently in a harmful physical or emotional relationship or is someone making you feel afraid or unsafe? 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 Gender Identity Not on file Sexual Orientation Not on file Obstetrics History Last Filed Vital Signs Vital Sign Reading Time Taken Comments Blood Pressure 95/70 02/04/2024 9:45 AM CDT Pulse 75 02/04/2024 9:45 AM CDT Temperature 36.6 C (97.8 F) 02/04/2024 7:01 AM CDT Respiratory Rate 17 02/04/2024 9:00 AM CDT Oxygen Saturation 95% 02/04/2024 9:45 AM CDT Inhaled Oxygen Concentration - - Weight 76.2 kg (168 lb) 02/04/2024 7:01 AM CDT Height 157.5 cm (5' 2 ) 02/04/2024 7:01 AM CDT Body Mass Index 30.73 02/04/2024 7:01 AM CDT Plan of Treatment Health Maintenance Due Date Last Done Comments Depression Screening 1987 Hepatitis C Screening 1987 DTaP/Tdap/Td Vaccine (1 - Tdap) 1998 Varicella Vaccines (1 of 2 - 13+ 2-dose series) 2000 Regular Well Visit/Exam 18-64 2005 Influenza Vaccine (#1) 2024 Hepatitis B Screening Completed 03/15/1998 , 09/03/1997, 08/03/1997 HPV Vaccines Aged Out No longer eligi ble based on patient's age to complete this topic Pneumococcal vaccine <65 Aged Out No longer eligible based on patient's age to complete this topic Medical Devices Implanted Type Area Information Manager Device Identifier Shelf Expiration Date Model / Serial / Lot [employer] Zilver 518 Od8 Mm Odsec5 Fr L60 Mm L125 Cm Self Expandable Delivery System Rapid Exchange Flexor Introducer Multiple Tire Classifier Iliac Artery .018 In Stent Vascular Nitinol Sterile G4 Implanted:Qty: 1 on 07/23/2023 by Ivette García MD at [facility] [employer] 03/21/2026 [id number] / / [id number] Insurance MENA SOCIAL MENA [employer] Advance Directives For more information, please contact: [phone] * Full Code (Latest Code Status on File) Date Activated Date Inactivated Comments 02/04/2024 9:31 AM 02/05/2024 5:27 AM * Full Code Date Activated Date Inactivated Comments 07/23/2023 9:15 AM 07/24/2023 2:23 PM Care Teams Supervisor [employer] Hatcher[employer] Relationship Specialty Start Date End Date Uriel Joshi MD [address] [place] [id number] PCP - General Family Medicine 11/30/22 Anil Henning DO [address] [facility] [address] [place] [address] Referring Physician Internal Medicine 12/20/22
--- OUTSIDE RECORDS SUMMARY | 2025-01-20 16:17 | XMS_ITS | Referral Summary ---
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 Gender Identity Not on file Sexual Orientation Not on file Last Filed Vital Signs Vital Sign Reading [...] 02/04/2024 7:01 AM CDT Plan of Treatment Not on file Medical Devices Implanted Type Area Advertising Layout Worker Device Identifier Shelf Expiration Date Model / Serial / Lot Tip or Skip Zilver 518 Od8 Mm Odsec5 Fr L60 Mm L125 Cm Self Expandable Delivery System Rapid Exchange Flexor Introducer Multiple Profile Grinder Iliac Artery .018 In Stent Vascular Nitinol Sterile G4 Implanted:Qty: 1 on 07/23/2023 by Ivette García MD at [facility] [employer] 03/21/2026 [id number] / / [id number] Insurance [employer] [facility] ALLIANCE OPTIONS [employer] Advance Directives For more information, please contact: [phone] * Full Code (Latest Code Status on File) Date Activated Date Inactivated Comments 02/04/2024 9:31 AM 02/05/2024 5:27 AM * Full Code Date Activated Date Inactivated Comments 07/23/2023 9:15 AM 07/24/2023 2:23 PM Care Teams Art Coordinator Relationship Specialty Start Date End Date Uriel Joshi MD [address] [place] [id number] PCP - General Family Medicine 11/30/22 Anil Henning DO [address] [facility] [address] [place] [address] Referring Physician Internal Medicine 12/20/22
--- OUTSIDE RECORDS SUMMARY | 2025-01-20 16:18 | XMS_ITS | Patient Health Summary ---
Author Organization [facility] [employer] Address [address] [place] [address] Care Team Providers Care Nut Cracker Name Role Phone Unavailable Primary Care Provider Unavailabl e Note from [facility],non-owned Affiliates and Associated Physician Practices is amultiple site organization consisting of ambulatory clinics and hospital sitesin [place], [place], [place] and [place]. This disclosure is being madepursuant to the Care Everywhere program and may not contain all information available regarding this patient. Last updated 18.[facility] [employer] Allergies No known active allergies Medications * Be aware that medications may not be up to date on this document. Alwaysverify current medications with the patient. * Multiple Vitamins-Minerals (MULTIVITAMIN & MINERAL PO) Take 1 tablet by mouth once daily * azithromycin (ZITHROMAX) 250 MG tablet(Started 02/22/2020) Take 2 tablets now, then 1 tablet daily for 4 days. * methylPREDNISolone (MEDROL DOSEPAK) 4 MG tablet(Started 02/22/2020) Take by mouth as directed * albuterol HFA (VENTOLIN HFA) 108 (90 Base) MCG/ACT inhaler(Started 02/22/2020) Inhale 2 puffs by mouth every 6 hours as needed 5 refills by 02/21/2021 * guaiFENesin-codeine (CHERATUSSIN AC) 100-10 MG/5ML syrup(Started 02/23/2020) 5ml at bedtime prn * spironolactone (ALDACTONE) 50 MG tablet(Started 03/18/2020) * hydrOXYzine hcl (ATARAX) 50 MG tablet(Started 04/28/2020) Take 1 tablet by mouth 4 times daily as needed for Itching 4 refills by 04/28/2021 Active Problems Problem Noted Date Diagnosed Date Pulmonary nodule 08/28/2019 Dysmenorrhea 12/19/2018 Menstrual cramps 12/19/2018 PMDD (premenstrual dysphoric disorder) 9 Malaise and fatigue 12/05/2018 Iron deficiency anemia due to chronic blood loss 12/05/2018 Metrorrhagia 12/05/2018 ovarian tumor 12/05/2018 Cysts of both ovaries 12/05/2018 Nipple discharge 12/05/2018 History of rheumatoid arthritis 12/05/2018 Abdominal bloating 12/05/2018 Social History Tobacco Use Types Packs/Day Years Used Date Smoking Tobacco: Former Cigarettes Q uit: 12/05/2016 Smokeless Tobacco: Never Tobacco Cessation:Counseling Given: Yes Alcohol Use Standard Drinks/Week Comments No 0 (1 standard drink = 0.6 oz pur e alcohol) Sex and Gender Information Value Date Recorded Sex Assigned at Not on file Gender Identity Not on file Sexual Orientation Not on file Last Filed Vital Signs Vital Sign Reading Time Taken Comments Blood Pressure 98/68 04/28/2020 1:56 PM CDT Pulse 82 04/28/2020 1:56 PM CDT Temperature 36.8 C (98.2 F) 04/28/2020 1:56 PM CDT Respiratory Rate - - Oxygen Saturation 98% 04/28/2020 1:56 PM CDT Inhaled Oxygen Concentration - - Weight 78.1 kg (172 lb 4 oz) 04/28/2020 1:56 PM CDT Height 161.3 cm (5' 3.5 ) 08/28/2019 11:17 AM CD T Body Mass Index 30.03 08/28/2019 11:17 AM CDT Procedures * CT ABDOMEN PELVIS WWO CONTRAST(Performed 06/14/2020) Performed for Mesenteric panniculitis (HCC) * COVID-19 VIRUS (CORONAVIRUS)(Performed 06/02/2020) Performed for Exposure to Covid-19 Virus * CT ABDOMEN PELVIS W CONTRAST(Performed 12/17/2019) * COMP METABOLIC PANEL (EXT RESULT ENTRY)(Performed 11/10/2019) * US PELVIS W TRANSVAG NON OB(Performed 12/12/2018) Performed for Metrorrhagia, Cysts of both ovaries * CHELSEY BLOOD SCREEN W/REFLEX TITER(Performed 12/05/2018) Performed for History of rheumatoid arthritis * RHEUMATOID FACTOR BLOOD QUANTITATIVE(Performed 12/05/2018) Performed for History of rheumatoid arthritis * T3 TOTAL(Performed 12/05/2018) Performed for Malaise and fatigue * T4 FREE(Performed 12/05/2018) Performed for Malaise and fatigue * THYROID PEROXIDASE ANTIBODY(Performed 12/05/2018) Performed for Malaise and fatigue * TSH(Performed 12/05/2018) Performed for Malaise and fatigue, Metrorrhagia, Abdominal bloating * PROLACTIN(Performed 12/05/2018) Performed for Nipple discharge * IRON + TRANSFERRIN PANEL(Performed 12/05/2018) Performed for Iron deficiency anemia due to chronic blood loss * COMPREHENSIVE METABOLIC PANEL(Performed 12/05/2018) Performed for Malaise and fatigue Results * CT ABDOMEN PELVIS WWO CONTRAST (06/14/2020) Anatomical Region Laterality Modality Abdomen, Pelvis Other Ophelia Espino ESILLAGE PA-C CT ORDERABLES * COVID-19 VIRUS (CORONAVIRUS) (06/02/2020) Microbiology SPECIMEN FROM NASOPHARYNGEAL STRUCTURE / Unknown 06/02/2020 Ophelia Min PA-C LAB - MICROBIOLOGY ORDERABLES OTHER LAB * CT ABDOMEN PELVIS W CONTRAST (12/17/2019) Anatomical Region Laterality Modality Abdomen, Pelvis Other Wale Paulino MD CT ORDERABLES * COMP METABOLIC PANEL (EXT RESULT ENTRY) (11/10/2019) Blood BLOOD SPECIMEN / Unknown Martinez Matos MD LAB - CHEMISTRY MONIQUE MONET * US PELVIS W TRANSVAG NON OB (12/12/2018) Anatomical Region Laterality Modality Pelvis Ultrasound Ophelia Srinivas Pako PA-C US ORDERABLES * RHEUMATOID FACTOR BLOOD QUANTITATIVE (12/05/2018 10:56 AM [facility] [employer]) Rheumatoid Factor Quantitative Negative <10IU/mL Negative <10IU/mL, Positive 10 IU/mL 12/05/2018 5:44 PM MERCHANDISE SUPERVISOR [facility] Blood BLOOD SPECIMEN / Unknown Venipuncture / Unknown 12/05/2018 10:56 AM MERCHANDISE SUPERVISOR 12/05/2018 10:56 AM MERCHANDISE SUPERVISOR Opheliarenetta CHERRY-C LAB - CHEMISTRY OR DERABLES Performing Organization Address City/[facility]/ZIP Co de Phone Number [facility] [address] * CHELSEY BLOOD SCREEN W/REFLEX TITER (12/05/2018 10:56 AM MERCHANDISE SUPERVISOR) CHELSEY IgG None Detected None Detected 12/07/2018 11:20 PM MERCHANDISE SUPERVISOR [facility] ([facility]) Comment: If suspicion of connective tissue disease is strong and CHELSEY EIA is negative, consider testing for CHELSEY by IFA ([id number]). INTERPRETIVE INFORMATION: Anti-Nuclear Antibodies (CHELSEY), IgG by HANNAH Anti-Nuclear Antibodies (CHELSEY), IgG by HANNAH: CHELSEY specimens are screened using enzyme-linked immunosorbent assay (HANNAH) methodology. All HANNAH results reported as Detected are further tested by indirect fluorescent assay (IFA) using HEp-2 substrate with an IgG-specific conjugate. The CHELSEY HANNAH screen is designed to detect antibodies against dsDNA, histone, SS-A (Ro), SS-B (La), Guzman, snRNP/Sm, Scl-70, Samantha-1, centromere, and an extract of lysed HEp-2 cells. CHELSEY HANNAH assays have been reported to have lower sensitivities than CHELSEY IFA for systemic autoimmune rheumatic diseases (SARD). Negative results do not necessarily rule out SARD. Performed by [facility], [address] [place] [address] [email or web address], Mike Iverson MD, Lab. Director Blood BLOOD SPECIMEN / Unknown Venipuncture / Unknown 12/05/2018 10:56 AM MERCHANDISE SUPERVISOR 12/05/2018 10:56 AM MERCHANDISE SUPERVISOR Ophelia HAIRC LAB - CHEMISTRY OR DERABLES [employer] ([facility]) [address] [place] [address] * THYROID PEROXIDASE ANTIBODY (12/05/2018 10:56 AM MERCHANDISE SUPERVISOR) Pathologist [facility] Thyroid Peroxidase TPO Antibody 1.7 0.0 - 9.0 IU/mL 12/07/2018 2:13 PM MERCHANDISE SUPERVISOR [employer] ([facility]) Comment: Performed by [facility], [address] [place] [address] [email or web address], Mike Iverson MD, Lab. Director Blood BLOOD SPECIMEN / Unknown Venipuncture / Unknown 12/05/2018 10:56 AM MERCHANDISE SUPER[employer]OR 12/05/2018 10:56 AM [facility] [employer]PER[employer] Ophelia Min PA-C LAB - CHEMISTRY OR DERABLES Performing Organization Address [facility] Co de Phone Number [employer] ([facility]) [address] [place] [address] * PROLACTIN (12/05/2018 10:56 AM MERCHANDISE SUPERVISOR) [facility] Prolactin 8.7 2.8 - 26.0 ng/mL 12/07/2018 11:48 PM MERCHANDISE SUPERVISOR [facility] [employer] ([facility]) Comment: REFERENCE INTERVAL: Prolactin Access complete set of age- and/or gender-specific reference intervals for this test in the [facility] Test Directory ([facility]). Performed by [facility], [address] [place] [address] [email or web address], Mike Iverson MD, Lab. Director Blood BLOOD SPECIMEN / Unknown Venipuncture / Unknown 12/05/2018 10:56 AM MERCHANDISE SUPERVISOR 12/05/2018 10:56 AM MERCHANDISE SUPERVISOR Opheliarenetta Colet PA-C LAB - CHEMISTRY OR DERABLES Performing Organization Address [facility]/ZIP Co de Phone Number [employer] [facility]) [address] [place] [address] * (ABNORMAL) COMPREHENSIVE METABOLIC PANEL (12/05/2018 10:56 AM MERCHANDISE SUPERVISOR) [facility] Glucose 84 70 - 125 mg/dL 12/05/2018 5:48 PM MERCHANDISE SUPERVISOR [facility] Sodium 138 136 - 145 mmol/L 12/05/2018 5:48 PM [facility] Potassium 4.0 3.4 - 4.5 mmol/L 12/05/2018 5:48 PM [facility] Chloride 104 98 - 107 mmol/L 12/05/2018 5:48 PM [facility] CO2 22 22 - 29 mmol/L 12/05/2018 5:48 PM [facility] Calcium 9.9 8.4 - 10.2 mg/dL 12/05/2018 5:48 PM [facility] Anion Gap 16 10 - 20 mmol/L 12/05/2018 5:48 PM [facility] BUN 10.4 9.8 - 20.1 mg/dL 12/05/2018 5:48 PM [facility] Creatinine 0.74 0.57 - 1.11 mg/dL 12/05/2018 5:48 PM [facility] eGFR by MDRD >60 >60 mL/min/1.7 3m2 12/05/2018 5:48 PM [facility] eGFR by MDRD >60 >60 mL/min/1.7 3m2 12/05/2018 5:48 PM [facility] Alkaline Phosphatase 98 40 - 150 U/L 12/05/2018 5:48 PM [facility] ALT 19 5 - 55 U/L 12/05/2018 5:48 PM [facility] AST 21 5 - 34 U/L 12/05/2018 5:48 PM [facility] Protein Total 8.3 6.4 - 8.3 gm/dL 12/05/2018 5:48 PM [facility] Albumin 4.2 3.5 - 5.0 gm/dL 12/05/2018 5:48 PM [facility] Globulin Total 4.1(H) 2.6 - 4.0 gm/dL 12/05/2018 5:48 PM [facility] Albumin/Globulin Ratio 1.0 0.9 - 1.6 12/05/2018 5:48 PM [facility] Bilirubin Total 0.4 0.2 - 1.2 mg/dL 12/05/2018 5:48 PM [facility] Blood BLOOD SPECIMEN / Unknown Venipuncture / Unknown 12/05/2018 10:56 AM MERCHANDISE SUPERVISOR 12/05/2018 10:56 AM [facility] Ophelia A Pako PA-C LAB - CHEMISTRY OR DERABLES Performing Organization Address [facility]/ZIP Co de Phone Number [facility] [address] * TSH (12/05/2018 10:56 AM MERCHANDISE SUPERVISOR) TSH 0.900 0.35 - 4.94 uIU/mL 12/05/2018 5:59 PM MERCHANDISE SUPERVISOR [facility] Blood BLOOD SPECIMEN / Unknown Venipuncture / Unknown 12/05/2018 10:56 AM MERCHANDISE SUPERVISOR 12/05/2018 10:56 AM MERCHANDISE SUPERVISOR Opheliarenetta Ledezmagett PA-C LAB - CHEMISTRY OR DERABLES Performing Organization Address [facility] de Phone Number [facility] [address] * T4 FREE (12/05/2018 10:56 AM MERCHANDISE SUPERVISOR) Pathologist [facility] T4 Free 0.97 0.71 - 1.48 ng/dL 12/05/2018 5:59 PM [facility] Blood BLOOD SPECIMEN / Unknown Venipuncture / Unknown 12/05/2018 10:56 AM MERCHANDISE SUPERVISOR 12/05/2018 10:56 AM [employer] [employer] Ophelia A Pako PA-C LAB - CHEMISTRY OR DERABLES Performing Organization Address [facility] Co de Phone Number [facility] [address] * IRON + TRANSFERRIN PANEL (12/05/2018 10:56 AM MERCHANDISE SUPERVISOR) Pathologist [facility] Iron 79 50 - 170 ug/dL 12/05/2018 5:48 PM [facility] Transferrin 244 180 - 382 mg/dL 12/05/2018 5:48 PM [facility] TIBC Calculated 305 261 - 497 mg/dL 12/05/2018 5:48 PM [facility] Iron Saturation % 26 11 - 45 % 12/05/2018 5:48 PM [facility] Blood BLOOD SPECIMEN / Unknown Venipuncture / Unknown 12/05/2018 10:56 AM MERCHANDISE SUPERVISOR 12/05/2018 10:56 AM MERCHANDISE SUPERVISOR Ophelia HAIRC LAB - CHEMISTRY OR DERABLES Performing Organization Address [facility]/ZIP Co de Phone Number [facility] [address] * T3 TOTAL (12/05/2018 10:56 AM MERCHANDISE SUPERVISOR) T3 Total 171 80 - 200 ng/dL 12/07/2018 5:12 PM MERCHANDISE SUPERVISOR [employer] ([facility]) Comment: REFERENCE INTERVAL: Triiodothyronine, Total (Total T3) Access complete set of age- and/or gender-specific reference intervals for this test in the [facility] Test Directory ([facility]). Performed by [facility], [address] [id number] [email or web address], Mike Iverson MD, Lab. Director Blood BLOOD SPECIMEN / Unknown Venipuncture / Unknown 12/05/2018 10:56 AM MERCHANDISE SUPERVISOR 12/05/2018 10:56 AM MERCHANDISE SUPERVISOR Ophelia Min PA-C LAB - CHEMISTRY OR DERABLES [employer] ([facility]) [address] [place], [place] [address]
--- OUTSIDE RECORDS SUMMARY | 2025-01-20 16:18 | XMS_ITS | Clinical Summary ---
Author Organization [facility] [address] Address [address] [place] [address] Phone Care Team Providers Care Testing Consultant Name Role Phone Unavailable Primary Care Provider Unavailabl e Allergies No known active allergies Medications escitalopram oxalate (LEXAPRO) 10 mg tablet Take 1 Tablet (10 mg) by mouth daily. 30 Tablet 09/03/2024 7:15 PM CDT 4 Active metFORMIN (GLUCOPHAGE XR) 500 mg Extended Release 24 hour tablet Take 1 Tablet (500 mg) by mouth daily. 90 Tablet 09/03/2024 7:15 PM CDT 4 Active ALPRAZolam (XANAX) 1 mg tablet Take 1 Tablet (1 mg) by mouth 2 times daily as needed for anxiety 60 Tablet 10/24/2024 4:49 PM MEDICATION AIDE 4 Active spironolactone (ALDACTONE) 100 mg tablet Take 1 Tablet (100 mg) by mouth 2 times daily. 90 Tablet 11/04/2024 5:37 PM MEDICATION AIDE 4 Active ALPRAZolam (XANAX) 1 mg tablet Take one tablet by mouth twice a day As Needed for anxiety 60 Tablet 12/09/2024 1:03 PM MEDICATION AIDE 5 Active est estrogens-meth ylTESTOSTERone (ESTRATEST H.S.) 0.625-1.25 mg tablet Take 1 Tablet by mouth daily. 90 Tablet 1 5 Active estradiol-nore thindrone Acet 1-0.5 mg tablet TAKE 1 TABLET BY MOUTH DAILY 90 Tablet 3 12/31/2024 5:25 PM MEDICATION AIDE 5 Active tirzepatide, weight loss, (Zepbound) 2.5 mg/0.5 mL Pen Injector Inject 2.5 mg by subcutaneous injection every 7 days. 2 mL 5 Active est estrogens-meth ylTESTOSTERone (ESTRATEST H.S.) 0.625-1.25 mg tablet Take 1 tablet by mouth once a day 90 Tablet 09/25/2024 6:59 PM CDT 4 025 Discontin ued(Reord er) Encounters Date Type Department Care Team Description 01/12/2025 External Device Data [facility] Provider, Abstract 12/17/2024 External Device Data [facility] Provider, Abstract 12/15/2024 External Device Data [facility] Provider, Abstract 12/08/2024 External Device Data [facility] Provider, Abstract from Last 3 Months Social History Tobacco Use Types Packs/Day Years Used Date Smoking Tobacco: Never Assessed Comments Unknown Sex and Gender Information Value Date Recorded Sex Assigned at Not on file Legal Sex Female 9:10 AM CDT Gender Identity Not on file Sexual Orientation Not on file Plan of Treatment Health Maintenance Due Date Last Done Comments Pre-Diabetes and Diabetes Screening 1987 DTAP/TDAP/TD VACCINES (1 - Tdap) 2006 HEPATITIS B VACCINES (1 of 3 - 19+ 3-dose series) 2006 CERVICAL CANCER SCREENING 2017 INFLUENZA VACCINE (#1) 2024 HPV VACCINES Aged Out No longer eligi ble based on patient's age to complete this topic PNEUMOCOCCAL VACCINE 0-64 YEARS Aged Out No longer eligible based on patient's age to complete this topic Insurance ALYSA [employer]OW[employer] Member Subscriber Plan / Payer (Ef fective 2024-Present) Name:Halle Vasquez Relation to Subscriber:Not on file Name:Halle Vasquez Subscriber ID:Not on file Date of :1985 Payer ID:Not on file Type:Not on file Address: [employer] (INTERNAL) [facility] [employer]
--- OUTSIDE RECORDS SUMMARY | 2025-01-20 16:18 | XMS_ITS | Clinical Summary ---
Author Organization [facility] [employer] Address [address] [place] [address] Care Team Providers Care General Maintenance Technician Name Role Phone Unavailable Primary Care Provider Unavailabl e Source Comments [facility] [employer],non-owned Affiliates and Associated Physician Practices is amultiple site organization consisting of ambulatory clinics and hospital sitesin [place], [place], [place] and [place]. This disclosure is being madepursuant to the Care Everywhere program and may not contain all information available regarding this patient. Last updated 18.[facility] [employer] Allergies No known active allergies Medications * Be aware that medications may not be up to date on this document. Alwaysverify current medications with the patient. Medication Sig Dispensed Refills Start Date End Date Status Multiple Vitamins-Minerals (MULTIVITAMIN & MINERAL PO) Take 1 tablet by mouth once daily Active azithromycin (ZITHROMAX) 250 MG tablet Take 2 tablets now, then 1 tablet daily for 4 days. 6 tablet 02/22/2020 Active Additional Information Patient not taking.Reported on 04/28/2020 methylPREDNISolone (MEDROL DOSEPAK) 4 MG tablet Take by mouth as directed 1 Each 02/22/2020 Active Additional Information Patient not taking.Reported on 04/28/2020 albuterol HFA (VENTOLIN HFA) 108 (90 Base) MCG/ACT inhaler Inhale 2 puffs by mouth every 6 hours as needed 1 Inhaler 5 02/22/2020 Active Additional Information Patient not taking.Reported on 04/28/2020 guaiFENesin-codeine (CHERATUSSIN AC) 100-10 MG/5ML syrup 5ml at bedtime prn 240 mL 02/23/2020 Active Additional Information Patient not taking.Reported on 04/28/2020 spironolactone (ALDACTONE) 50 MG tablet 03/18/2020 Active hydrOXYzine hcl (ATARAX) 50 MG tablet Take 1 tablet by mouth 4 times daily as needed for Itching 30 tablet 4 04/28/2020 Active Active Problems Problem Noted Date Diagnosed Date Pulmonary nodule 08/28/2019 Dysmenorrhea 12/19/2018 Menstrual cramps 12/19/2018 PMDD (premenstrual dysphoric disorder) 9 Malaise and fatigue 12/05/2018 Iron deficiency anemia due to chronic blood loss 12/05/2018 Metrorrhagia 12/05/2018 ovarian tumor 12/05/2018 Cysts of both ovaries 12/05/2018 Nipple discharge 12/05/2018 History of rheumatoid arthritis 12/05/2018 Abdominal bloating 12/05/2018 Family History Relation Name Status Comments Father Alive Maternal Grandfather Alive Maternal Grandmother Alive Mother Alive Paternal Grandfather Paternal Grandmother Alive Sister Alive Social History Tobacco Use Types Packs/Day Years [...] Mass Index 30.03 08/28/2019 11:17 AM CDT Plan of Treatment Health Maintenance Due Date Last Done Comments HIV SCREENING 2002 HEPATITIS C SCREENING 07/21/2005 DTAP/TDAP/TD VACCINES (1 - Tdap) 2006 HEPATITIS B VACCINE (1 of 3 - 19+ 3-dose series) 2006 PAP with HPV 2017 COVID-19 VACCINE (2023-2 5 season) 2024 INFLUENZA VACCINE (#1) 2024 DEPRESSION SCREENING 11/25/2024 ZOSTER VACCINE (1 of 2) 2037 HIB VACCINE Aged Out No longer eligi ble based on patient's age to complete this topic HPV VACCINE Aged Out No longer eligi ble based on patient's age to complete this topic MENINGOCOCCAL (Group B) VACCINE Aged Out No longer eligible based on patient's age to complete this topic MENINGOCOCCAL VACCINE Aged Out No aury amelie eligible based on patient's age to complete this topic PNEUMOCOCCAL VACCINE Aged Out No long er eligible based on patient's age to complete this topic
--- OUTSIDE RECORDS SUMMARY | 2025-01-20 16:18 | XMS_ITS | Referral Summary ---
Author Organization [facility] [employer] Address [address] [place] [address] Care Team Providers Care Design Inserter Name Role Phone Unavailable Primary Care Provider Unavailabl e Source Comments [facility],non-owned Affiliates and Associated Physician Practices is amultiple site organization consisting of ambulatory clinics and hospital sitesin [place], [place], [place] and [place]. This disclosure is being madepursuant to the Care Everywhere program and may not contain all information available regarding this patient. Last updated 18.[facility] Allergies No known active allergies Medications * [...] 08/28/2019 11:17 AM CDT Plan of Treatment Not on file
--- OUTSIDE RECORDS SUMMARY | 2025-01-20 16:18 | XMS_ITS | Data Portability ---
Author Organization [facility] Address [address] [place] [address] Assessment No assessment recorded. Plan of Treatment Reminders Order Date Submit Date Provider Last Modified By Organization Details Last Modified Time Details Appointments None recorded. Lab PPD (purified protein derivative) , skin test 2016 017 [email or web address] In-Office Order, Internal Use Only DO Not Attach Compendium DO Not Attach Compendium, Do Not Delete/merge, [id number] 7 16:33:54 Referral None recorded. Procedures None recorded. Surgeries None recorded. Imaging None recorded. Medication Orders Tubersol 5 tub. unit/0.1 mL intradermal injection solution 2016 017 [email or web address] Not available 7 15:27:17 Patient TargetsNo targets recorded. Patient InstructionsNo instructions recorded. Reason for Referral None Reported. Results Created Date Observation Date Name Description Value Unit Range Abnormal Flag Note LastModifiedBy Organization Detail LastModifiedTime 04/03/20 17 04/03/2017 PPD (nancy fied prote in deriv ative ), skin test Result Negati ve Not Available In-Office Order Internal Use Only DO Not Attach Compendium DO Not Attach Compendium, Do Not Delete/merge, [id number] 04/03/2017 16:27:59 11/08/20 19 11/08/2019 strep tococ cus group A Ag scree n specimen type THROAT Not Available [facility] (Lab) [place], [address], 11/08/2019 19:04:50 11/08/20 19 11/08/2019 strep tococ cus group A Ag scree n rapid strep A NEGATI VE neg Not Available [facility] (Lab) One [facility], [place], [address], 11/08/2019 19:04:50 11/08/20 19 11/09/2019 group A strep molec ular assay strep A molecular POSITI VE neg abnormal SPECI MEN POSIT OTF FOR GROUP A STREP TOCOC CUS BY DNA AMPLI FICAT ION Not Available [facility] (Lab) One [facility], [place], [address], 11/09/2019 17:54:27 Result Notes None recorded. Medical Equipment None Reported. Allergies No known drug allergies Medications Name Sig Start Date Stop Date Status Note LastModified by Organization Details LastModified Time Tubersol 5 tub. unit/0.1 mL intradermal injection solution Inject 0.1 mL by intraderma l route. 2016 active Given by Lety er, RMA Not Available Not Available Not Available Vitals Date Recorded Body height Body weight Body mass index (BMI) Heart rate Body temperature Systolic blood pressure Diastolic blood pressure Provider Name and Address Organization Details Last Updated DateTime 7 157.48 cm 78688.8 9 g 26.5 kg/m2 72 /min 98.2 [degF] 110 mm[Hg] 72 mm[Hg] Ruby Oakley MA [place] - [facility] 7 14:40:05 Social History None recorded. Functional Status None recorded. Mental Status None recorded. Family History Nothing Reported. Medical History No medical history recorded. Gynecological HistoryNo gynecological history recorded. Obstetrics History GPAL:G 0 P 0 0 0 0 Past Encounters Encounter ID Performer Location Encounter Start Date Encounter Closed Date Diagnosis/Indication Diagnosis SNOMED-CT Code Diagnosis ICD10 Code Diagnosis Note [id number] Subha Stanford [facility] [address] [place] [address] 04/01/2017 13:54:31 04/02/2017 10:56:35 History and physical examination, pre-employment 967886437 Z02.1 assessment negative. no restrictio ns indicated. mmr and tdap records to obtained from pt school. tb given per ma per vo Health Concerns Section Related Observation LastModified by Organization Detai ls LastModified Time None Recorded Concern Status LastModified by Organization Details LastModified Time None Recorded Advance Directives Directive None Recorded Payers Encounter Date Sequence Insurance Name Policy Number Policy Armstrong Covered Member ID Armstrong Member ID Guarantor Name 04/01/2017 1 [facility] (MEDICAID HMO) Halle Vasquez [id number] Halle Vasquez Notes Date Note Type Note Provider Name and Address Organization Details Recorded Time 04/01/2017 text/html Pt presents to clinic requesting employment physical. She denies nausea, vomiting, fever, chills, diarrhea, constipation and dysuria. Subha Stanford [facility], [place] - [facility] 04/03/2017 16:28:34 OBGyn Episode No OBEpisode recorded.
--- OUTSIDE RECORDS SUMMARY | 2025-01-20 16:18 | XMS_ITS | Clinical Summary ---
Author Organization [facility] Address [address] [place] [address] Care Team Providers Care Human Resources District Manager Name Role Phone Uriel Joshi MD Primary Care Provider [phone] Allergies No known active allergies Medications No known medications Family History Medical History Relation Comments None Father None Mother Relation Status Comments Father Alive Mother Alive Social History Tobacco Use Types Packs/Day Years Used Date Smoking Tobacco: Former Cigarettes 0.3 12 0 12/2006 - 12/2018 Smokeless Tobacco: Never Alcohol Use Standard Drinks/Week Comments No 0 (1 standard drink = 0.6 oz pur e alcohol) Comments No Sex and Gender Information Value Date Recorded Sex Assigned at Not on file Legal Sex Female 7:30 PM CDT Gender Identity Not on file Sexual Orientation Not on file Last Filed Vital Signs Vital Sign Reading Time Taken Comments Blood Pressure 109/81 12/06/2020 1:22 PM SWING TENDER Pulse 72 12/06/2020 1:22 PM SWING TENDER Temperature 36.4 C (97.6 F) 12/06/2020 1:22 PM SWING TENDER Respiratory Rate 16 12/06/2020 1:22 PM SWING TENDER Oxygen Saturation 98% 12/06/2020 1:22 PM SWING TENDER Inhaled Oxygen Concentration - - Weight 74.8 kg (165 lb) 12/06/2020 1:22 PM SWING TENDER Height 157.5 cm (5' 2 ) 12/06/2020 1:22 PM SWING TENDER Body Mass Index 30.18 12/06/2020 1:22 PM SWING TENDER Plan of Treatment Health Maintenance Due Date Last Done Comments Annual Physical 1990 Hepatitis C 2005 DTaP, Tdap and Td Vaccines ( 1 - Tdap) 2006 Hepatitis B Vaccines (1 of 3 - 19+ 3-dose series) 2006 COVID-19 Vaccine (2023-2 5 season) 2024 Influenza Adult (#1) 2024 HPV Vaccines Aged Out No longer eligi ble based on patient's age to complete this topic Meningococcal B Vaccine Aged Out No l onger eligible based on patient's age to complete this topic Meningococcal Vaccine Aged Out No aury amelie eligible based on patient's age to complete this topic Pneumococcal Vaccine: Pediat rics (0 to 5 Years) and At-Risk Patients (6 to 64 Years) Aged Out No longer eligible b ased on patient's age to complete this topic RSV Immunizations Under 20 Months Aged Out No longer eligible based on patient's age to complete this topic Insurance Care Teams Human Resources District Manager Relationship Specialty Start Date End Date Uriel Joshi MD [address] [place] [address] PCP - General FAMILY PRACTICE 02/09/23
--- OUTSIDE RECORDS SUMMARY | 2025-01-20 16:18 | XMS_ITS | Continuity of Care Document ---
Author Organization [facility] Address [address] [place] [address] Phone Care Team Providers Care Pin Drafting Machine Tender Name Role Phone Unavailable Unavailable Unavailable Advance Directives Directive Yes / No Effective Date File Name No Information Encounters Encounter Description Practice Location Reason(s) For Visit Diagnoses Date Provider Providers Copied on Encounter [facility], [address] [facility], [place], [place], [id number], [place] tel:[phone] [facility] No Information No Information Referring Provider: AJIT Dale, [address], [place], [address]. tel:[phone] Family History Family Member Type Diagnosis Age At Onset No Information Payers Payer name Insurance type Covered democrat ID Authoriza timag(s) [facility] O [id number] [facility] IN[facility]MNITY [id number] Social History Type Description Quantity Date Captured Comments Sex Female Smoking Status No Information Chief Complaint And Reason For Visit No Information History Of Present Illness Encounter Date Complaint History Of Prese nt Illness No Information Instructions Date Instruction Additional Infor mation No Information Assessments Type Assessment Date No Information
[2025-01-20 18:05] LABS: LDL Cholesterol Direct 102 mg/dL
[2025-01-20 18:06] LABS: Alanine Aminotransferase 31 U/L (6-35); Albumin Level 4.5 g/dL (3.5-5.1); Alkaline Phosphatase 106 U/L (38-126); Anion Gap 14 mmol/L (4-12); Aspartate Amino Transferase 28 U/L (14-36); Bilirubin,Total 0.7 mg/dL (0.2-1.3); Blood Urea Nitrogen 11 mg/dL (7-17); Calcium 9.6 mg/dL (8.4-10.2); Carbon Dioxide 22 mmol/L (22-30); Chloride 101 mmol/L (98-107); Cholesterol 202 mg/dL (0-200); Estimated Glomerular Filt Rate > 60; Glucose 79 mg/dL (65-110); HDL Direct 55 mg/dL; Magnesium 1.8 mg/dL (1.6-2.3); Potassium 3.9 mmol/L (3.4-5.0); Sodium 137 mmol/L (137-145); Triglycerides 155 mg/dL (<150)
== END 2025-01-20 14:14 | disposition home or self-care (01) ==
LOC: ANHLAB 14:16
PROVIDERS: PCP Physician Assistant Medical; Visit Provider Physician Assistant Medical
DX: Z00.00 Encounter for general adult medical examination without abnormal findings (principal); R19.8 Other specified symptoms and signs involving the digestive system and abdomen; E53.8 Deficiency of other specified B group vitamins; F41.9 Anxiety disorder, unspecified; E55.9 Vitamin D deficiency, unspecified; R23.2 Flushing; G43.909 Migraine, unspecified, not intractable, without status migrainosus; Z68.30 Body mass index [BMI] 30.0-30.9, adult; Z13.220 Encounter for screening for lipoid disorders
CPT/HCPCS: 36415; 80053; 80061; 82306; 82607; 83735; 84443; 85025

== ENCOUNTER 2025-03-22 11:28 | Outpatient (CLI) | payer OTHER, SELFPAY ==
--- NOTE | ~2025-03-22 | XR_ITS ---
CHEST RADIOGRAPH, PA AND LATERAL CLINICAL HISTORY: R05.9 - Cough, unspecified, h/o lung nodules . COMPARISON: 12/03/2022 TECHNIQUE: PA and lateral views of the chest. FINDINGS The cardiomediastinal silhouette is unremarkable. Calcified granulomas detected bilaterally. Remainder of lungs are clear. IMPRESSION: No focal infiltrate or effusion. Reviewed, dictated and finalized at location A.
[2025-03-22 11:48] LABS: Basophils Percent Auto 0.2 % (0.2-1.2); Eosinophils Absolute Auto 0.2 K/mm3 (0-0.3); Eosinophils Percent Auto 1.7 % (0-4.4); Hematocrit 42.1 % (37.0-47.0); Hemoglobin 13.6 g/dL (12.0-15.0); Immature Granulocyte Absolute 0.06 K/mm3 (0.00-0.031); Immature Granulocyte Percent A 0.7 % (0-0.5); Lymphocytes Absolute Auto 2.36 K/mm3 (0.9-3.2); Mean Corpuscular HGB Conc 32.3 g/dl (32-36); Mean Corpuscular Hemoglobin 27.9 pg (26-34); Mean Corpuscular Volume 86.4 fl (80-100); Mean Platelet Volume 8.8 fl (7.4-10.4); Monocytes Absolute Auto 0.5 K/mm3 (0.1-0.6); Monocytes Percent Auto 5.7 % (2.6-8.5); Neutrophils Absolute Auto 5.7 K/mm3 (1.3-6.7); Neutrophils Percent Auto 64.7 % (45.5-73.1); Platelet Count Result 332 k/mm3 (150-375); Red Blood Count 4.87 M/mm3 (4.2-5.4); Red Cell Distribution Width 13.2 % (11.5-14.5); White Blood Count 8.8 K/mm3 (4.5-10.0)
[2025-03-22 12:00] LABS: Alanine Aminotransferase 40 U/L (6-35); Alkaline Phosphatase 92 U/L (38-126); Anion Gap 7 mmol/L (4-12); Aspartate Amino Transferase 33 U/L (14-36); Bilirubin,Total 0.3 mg/dL (0.2-1.3); Blood Urea Nitrogen 12 mg/dL (7-17); Calcium 8.9 mg/dL (8.4-10.2); Carbon Dioxide 26 mmol/L (22-30); Chloride 104 mmol/L (98-107); Cholesterol 205 mg/dL (0-200); Estimated Glomerular Filt Rate > 60; Glucose 101 mg/dL (65-110); HDL Direct 52 mg/dL; Magnesium 1.9 mg/dL (1.6-2.3); Potassium 4.1 mmol/L (3.4-5.0); Sodium 137 mmol/L (137-145); Triglycerides 111 mg/dL (<150)
[2025-03-22 12:13] LABS: LDL Cholesterol Direct 109 mg/dL
[2025-03-22 12:28] LABS: Vitamin D 25 Hydroxy 34.1 ng/mL
[2025-03-22 12:42] LABS: Thyroid Stimulating Hormone Reflex 0.798 uIU/mL (0.465-4.68)
--- OUTSIDE RECORDS SUMMARY | 2025-03-22 13:33 | XMS_ITS | Clinical Summary ---
Author Organization [facility] [address] [address] [facility] Address [address] [place] [address] Phone Care Team Providers Care Translator Name Role Phone Unavailable Primary Care Provider [...] for anxiety 60 Tablet 10/24/2024 4:49 PM WATCH AND CLOCK MAKER AND REPAIRER 4 Active spironolactone (ALDACTONE) 100 mg tablet Take 1 Tablet (100 mg) by mouth 2 times daily. 90 Tablet 11/04/2024 5:37 PM WATCH AND CLOCK MAKER AND REPAIRER 4 Active ALPRAZolam (XANAX) 1 mg tablet Take one tablet by mouth twice a day As Needed for anxiety 60 Tablet 12/09/2024 1:03 PM WATCH AND CLOCK MAKER AND REPAIRER 5 Active est estrogens-meth ylTESTOSTERone (ESTRATEST H.S.) 0.625-1.25 mg tablet Take 1 Tablet by mouth daily. 90 Tablet 1 5 Active estradiol-nore thindrone Acet 1-0.5 mg tablet TAKE 1 TABLET BY MOUTH DAILY 90 Tablet 3 12/31/2024 5:25 PM WATCH AND CLOCK MAKER AND REPAIRER 5 Active tirzepatide, weight loss, (Zepbound) 2.5 mg/0.5 mL Pen Injector Inject 2.5 mg by subcutaneous injection every 7 days. 2 mL 5 Active conjugated estrogens (Premarin) 1.25 mg tablet Take 1 Tablet (1.25 mg) by mouth daily. 90 Tablet 3 01/26/2025 6:19 PM WATCH AND CLOCK MAKER AND REPAIRER 5 Active valACYclovir (VALTREX) 1 gram tablet Take 2 Tablets by mouth every 12 hours for fever blister 4 Tablet 03/03/2025 6:42 PM CDT 5 Active fluoride, sodium, (ETHEDENT) 1.1 % Cream Use as directed twice daily 51 Gram 5 Active ALPRAZolam (XANAX) 1 mg tablet Take 1 Tablet (1 mg) by mouth 2 times daily as needed for anxiety 60 Tablet 5 Active ALPRAZolam (XANAX) 1 mg tablet Take 1 Tablet (1 mg) by mouth 2 times daily as needed for anxiety 60 Tablet 02/04/2025 6:28 PM CDT 5 025 Discontin ued(Reord er) Encounters Date Type Department Care Team Description 03/09/2025 External Device Data [facility] ABSTRACTION Provider, Abstract 02/10/2025 External Device Data [facility] ABSTRACTION Provider, Abstract 02/10/2025 External Device Data [facility] ABSTRACTION Provider, Abstract 01/30/2025 External Device Data [facility] ABSTRACTION Provider, Abstract 01/29/2025 External Device Data [facility] ABSTRACTION Provider, Abstract 01/26/2025 External Device Data [facility] ABSTRACTION Provider, Abstract 01/12/2025 External Device Data [facility] ABSTRACTION Provider, [...] Health Maintenance Due Date Last Done Comments DTAP/TDAP/TD VACCINES (1 - Tdap) 2006 HEPATITIS B VACCINES (1 of 3 - 19+ 3-dose series) 2006 HPV/Cotest (21-29) 2008 CERVICAL CANCER SCREENING 2017 HPV/Cotest (30-65) 2017 PAP SMEAR 2017 INFLUENZA VACCINE (#1) 2024 HPV VACCINES Aged Out No longer eligi ble based on patient's age to complete this topic Insurance [facility] [employer] Member Subscriber Plan / Payer (Ef fective 2024-Present) Name:Halle Vasquez Relation to Subscriber:Not on file Name:Halle Vasquez Subscriber ID:Not on file Date of :1985 Payer ID:Not on file Type:Not on file Address: [place] [employer] (INTERNAL) [facility]
--- OUTSIDE RECORDS SUMMARY | 2025-03-22 13:33 | XMS_ITS | Clinical Summary ---
Author Organization [facility] Address [address] [place] [address] Care Team Providers Care Switchboard Clerk Name Role Phone Uriel Joshi MD Primary Care Provider [phone] Anil Henning DO Unavailable Allergies No known active allergies Medications spironolactone [...] on file Legal Sex Female 8:01 PM DISTRIBUTION SPEC Gender Identity Not on file Sexual Orientation [...] Regular Well Visit/Exam 18-64 2005 Influenza Vaccine (Season Ended) 2025 Hepatitis B Screening Completed 03/15/1998 , 09/03/1997, 08/03/1997 HPV Vaccines Aged Out No longer eligi ble based on patient's age to complete this topic Pneumococcal vaccine <65 Aged Out No longer eligible based on patient's age to complete this topic Medical Devices Implanted Type Area Application Software Engineer Device Identifier Shelf Expiration Date Model / Serial / Lot Glance Zilver 518 Od8 Mm Odsec5 Fr L60 Mm L125 Cm Self Expandable Delivery System Rapid Exchange Flexor Introducer Multiple Transit Planning Director Iliac Artery .018 In Stent Vascular Nitinol Sterile G4 Implanted:Qty: 1 on 07/23/2023 by Ivette García MD at [facility] Glance 03/21/2026 [id number] / / [id number] Insurance [employer] Advance Directives For more information, please contact: [phone] * Full Code (Latest Code Status on File) Date Activated Date Inactivated Comments 02/04/2024 9:31 AM 02/05/2024 5:27 AM * Full Code Date Activated Date Inactivated Comments 07/23/2023 9:15 AM 07/24/2023 2:23 PM Care Teams Switchboard Clerk Relationship Specialty Start Date End Date Uriel Joshi MD [address] [place] [address] PCP - General Family Medicine 11/30/22 Anil Henning DO [address] [facility] [address] [place] [address] Referring Physician Internal Medicine 12/20/22
--- OUTSIDE RECORDS SUMMARY | 2025-03-22 13:33 | XMS_ITS | Referral Summary ---
Author Organization [facility] Address [address] [place] [address] Care Team Providers Care Tent Assembler Name Role Phone Uriel Joshi MD Primary Care Provider [phone] Anil Hennnig DO Unavailable [phone] Allergies No known active allergies Medications spironolactone [...] on file Legal Sex Female 8:01 PM GRAIN MIXER Gender Identity Not on file Sexual Orientation [...] on file Medical Devices Implanted Type Area Glass Belt Sander Device Identifier Shelf Expiration Date Model / Serial / Lot [employer]ura Zilver 518 Od8 Mm Odsec5 Fr L60 Mm L125 Cm Self Expandable Delivery System Rapid Exchange Flexor Introducer Multiple Paint Stock Clerk Iliac Artery .018 In Stent Vascular Nitinol Sterile G4 Implanted:Qty: 1 on 07/23/2023 by Ivette García MD at [facility] [employer] 03/21/2026 [id number] / / [id number] Insurance [employer] [facility] ALLIANCE OPTIONS [employer] Advance Directives For more information, please contact: [phone] * Full Code (Latest Code Status on File) Date Activated Date Inactivated Comments 02/04/2024 9:31 AM 02/05/2024 5:27 AM * Full Code Date Activated Date Inactivated Comments 07/23/2023 9:15 AM 07/24/2023 2:23 PM Care Teams Tent Assembler Relationship Specialty Start Date End Date Uriel Joshi MD [address] [place] [address] PCP - General Family Medicine 11/30/22 Anil Henning DO [address] [facility] [address] [place] [address] Referring Physician Internal Medicine 12/20/22
--- OUTSIDE RECORDS SUMMARY | 2025-03-22 13:33 | XMS_ITS | Clinical Summary ---
Author Organization [facility] Address [address] [place] [address] Care Team Providers Care Stucco Plasterer Name Role Phone Uriel Joshi MD Primary Care Provider [phone] Allergies No known active allergies Medications No [...] Comments Blood Pressure 109/81 12/06/2020 1:22 PM SHOE TRIMMER Pulse 72 12/06/2020 1:22 PM SHOE TRIMMER Temperature 36.4 C (97.6 F) 12/06/2020 1:22 PM SHOE TRIMMER Respiratory Rate 16 12/06/2020 1:22 PM SHOE TRIMMER Oxygen Saturation 98% 12/06/2020 1:22 PM SHOE TRIMMER Inhaled Oxygen Concentration - - Weight 74.8 kg (165 lb) 12/06/2020 1:22 PM SHOE TRIMMER Height 157.5 cm (5' 2 ) 12/06/2020 1:22 PM SHOE TRIMMER Body Mass Index 30.18 12/06/2020 1:22 PM SHOE TRIMMER Plan of Treatment Health Maintenance Due Date Last Done Comments Annual Physical 1990 Hepatitis C 2005 DTaP, Tdap and Td Vaccines ( 1 - Tdap) 2006 Hepatitis B Vaccines (1 of 3 - 19+ 3-dose series) 2006 COVID-19 Vaccine (2023-2 5 season) 2024 HPV Vaccines Aged Out No longer eligi ble based on patient's age to complete this topic Meningococcal B Vaccine Aged Out No l onger eligible based on patient's age to complete this topic Meningococcal Vaccine Aged Out No aury amelie eligible based on patient's age to complete this topic Pneumococcal Vaccine: Pediat rics (0 to 5 Years) and At-Risk Patients (6 to 49 Years) Aged Out No longer eligible b ased on patient's age to complete this topic RSV Immunizations Under 20 Months Aged Out No longer eligible based on patient's age to complete this topic Insurance Care Teams Stucco Plasterer Relationship Specialty Start Date End Date Uriel Joshi MD [address] [place] [address] PCP - General FAMILY PRACTICE 02/09/23
--- OUTSIDE RECORDS SUMMARY | 2025-03-22 13:33 | XMS_ITS | Clinical Summary ---
Author Organization [facility] Address [address] [place] [address] Care Team Providers Care Geodetic Technician Name Role Phone Unavailable Primary Care Provider Unavailabl e Source Comments [facility],non-owned Affiliates and Associated Physician Practices is amultiple site organization consisting of ambulatory clinics and hospital sitesin [place] and [place]. This disclosure is being madepursuant to the Care Everywhere program and may not contain all information available regarding this patient. Last updated 18.[facility] Allergies No known active allergies Medications * Be aware that medications may not be up to date on this document. Alwaysverify current medications with the patient. Multiple Vitamins-Minera ls (MULTIVITAMIN & MINERAL PO) Take 1 tablet by mouth once daily Active azithromycin (ZITHROMAX) 250 MG tablet Take 2 tablets now, then 1 tablet daily for 4 days. 6 tablet 0 Active Additional Information Patient not taking.Reported on 04/28/2020 methylPREDNISol one (MEDROL DOSEPAK) 4 MG tablet Take by mouth as directed 1 Each 0 Active Additional Information Patient not taking.Reported on 04/28/2020 albuterol HFA (VENTOLIN HFA) 108 (90 Base) MCG/ACT inhaler Inhale 2 puffs by mouth every 6 hours as needed 1 Inhaler 5 0 Active Additional Information Patient not taking.Reported on 04/28/2020 guaiFENesin-cod eine (CHERATUSSIN AC) 100-10 MG/5ML syrup 5ml at bedtime prn 240 mL 0 Active Additional Information Patient not taking.Reported on 04/28/2020 spironolactone (ALDACTONE) 50 MG tablet 0 Active hydrOXYzine hcl (ATARAX) 50 MG tablet Take 1 tablet by mouth 4 times daily as needed for Itching 30 tablet 4 0 Active Active Problems Problem Noted Date Diagnosed [...] at Not on file Legal Sex Female 2:48 PM NIGHT NURSE Gender Identity Not on file Sexual Orientation [...] 2006 PAP with HPV 2017 COVID-19 VACCINE (1 - 2023-2 5 season) 2024 DEPRESSION SCREENING 11/25/2024 INFLUENZA VACCINE (Season Ended) 2025 ZOSTER VACCINE (1 of 2) 2037 HIB VACCINE Aged Out No longer eligi ble based on patient's age to complete this topic HPV VACCINE Aged Out No longer eligi ble based on patient's age to complete this topic MENINGOCOCCAL (Group B) VACC INE SHARED DECISION-MAKING Aged Out No longer eligibl e based on patient's age to complete this topic MENINGOCOCCAL GROUPS A/C/Y/W VACCINE Aged Out No longer eligible b ased on patient's age to complete this topic PNEUMOCOCCAL VACCINE Aged Out No long er eligible based on patient's age to complete this topic Insurance [facility]
== END 2025-03-22 11:29 | disposition home or self-care (01) ==
PROVIDERS: PCP Physician Assistant Medical; Visit Provider Physician Assistant Medical
DX: Z00.00 Encounter for general adult medical examination without abnormal findings (principal); Z13.220 Encounter for screening for lipoid disorders; G43.909 Migraine, unspecified, not intractable, without status migrainosus; F41.9 Anxiety disorder, unspecified; R19.8 Other specified symptoms and signs involving the digestive system and abdomen; Z68.30 Body mass index [BMI] 30.0-30.9, adult; E53.8 Deficiency of other specified B group vitamins; E55.9 Vitamin D deficiency, unspecified; R23.2 Flushing; R05.9 Cough, unspecified
CPT/HCPCS: 36415; 71046; 80053; 80061; 82306; 82607; 83735; 84443; 85025

== ENCOUNTER → 2025-04-29 03:00 | Day surgery (SDC) | payer OTHER, SELFPAY ==
--- NOTE | 2025-04-26 08:33 | PC.NURSE ---
Report to the Outpatient Waiting Room, entrance under the green pavilion located off [facility], at time _6:30 AM on date __04/29/25 . Planned Procedure Time: __8:30 AM .? Time changes happen often and if your time is changed the preop area will call you the afternoon before. - You and your visitor will be asked to self-screen and do not enter if you have any COVID symptoms. Please call surgeon if you need to reschedule. - A mask is optional within the hospital at this time. Patients may have clear liquids (water, carbonated beverages, clear teas, apple juice) until 3 hours prior to surgery ( 5:30 AM) with a maximum of 20 ounces. - No food from midnight until time of surgery and no smoking, or chewing tobacco (or any form of nicotine). No chewing gum, candy or mints. Take only the following medications with a SIP of water on the morning of surgery: __ALPRAZOLAM IF NEEDED DO NOT STOP ANY OF YOUR OTHER PRESCRIPTION MEDICATIONS PRIOR TO SURGERY EXCEPT THE FOLLOWING Hold all vitamins and supplements for 3 days per anesthesiologist.LAST DOSE 04/25/25 Medications to discontinue per physician PT STATES PER DR MATTHEW STEINER CONTINUE 81 MG ASPIRIN -DO NOT TAKE MORNING OF SURGERY Date to take last dose Please no make-up, nail german, hairspray, perfume, deodorant, or body powder the day of surgery.? No jewelry (including any body piercings) or valuables the day of surgery, leave them at home.? Please take a shower or bath the night before, or the morning of, surgery with an antibacterial soap.? Wear comfortable, loose fitting clothing.? Children are encouraged to wear pajamas. - Jewelry must be removed prior to entering the operating room.? Rings and piercings that are not removed may be cut off. - The hospital will not accept responsibility for valuables.? - Please leave all valuables, including medications, at home the day of surgery. If you are going home after surgery, a licensed drive away driver must drive you home.? - NO public transportation without another adult if you receive anesthesia. - We recommend that an adult stay with you for 24 hours following discharge. - We also recommend that you do not drive, make important decision, drink alcoholic beverages, or take any drugs that were not prescribed by your health care provider for at least 24 hours after your discharge time. For Pediatric surgeries, we recommend two adults accompany the child home. Follow any additional instructions given to you from your surgeon. Telephone instructions given to ___PATIENT and asked if any additional questions and then verbalized understanding. Patient advised to call surgeon office or pre surgery nurse liaison [phone] if any additional questions.
[2025-04-26 08:48] VITALS: BMI 31.0
--- NOTE | 2025-04-27 07:09 | P.HP_ITS ---
H&P: HPI History of Present Illness Date/Time: 04/27/25 07:09 Chief Complaint: Pelvic pain and dyspareunia Narrative: This is a 39-year-old female admitted for diagnostic laparoscopy. She had history of pelvic adhesions. She has severe pain with intercourse. She is status post hysterectomy. Ultrasound was on helpful. But her pain has become severe. She will undergo diagnostic laparoscopy with lysis of adhesions. Risks benefits reviewed including but not exclusive of, aspiration bleeding, transfusion, perforation injury to bowel, bladder, ureters, or other internal organs with need for open laparotomy. She received the ACOG handout entitled laparoscopy. She had all questions answered. She asked to proceed Review of Systems Review of Systems: CONSTITUTIONAL: Denies fever, chills, or sweats. EYES: Denies visual changes, redness, or discharge. ENT: Denies rhinorrhea, congestion, Positive sore throat, or otalgia. CARDIOVASCULAR: Denies chest pain, palpitations, or edema. RESPIRATORY: Denies cough or dyspnea. GASTROINTESTINAL: Denies abdominal pain, nausea, vomiting, or diarrhea. GENITOURINARY: Denies dysuria or hematuria. SKIN: Denies rash or itching. MUSCULOSKELETAL: Denies back pain, joint pain, or myalgia. NEUROLOGIC: Denies headache, numbness, or weakness. PSYCHIATRIC: Denies anxiety or depression. 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 H/O: hysterectomy Family History Family History Father Depression Heart disease Mother Cancer Depression Heart disease Social History Social History Years smoked: 10 Smoking status: Former smoker Tobacco type: cigarettes Smokeless tobacco user: chewing tobacco Smoking end date: 11/25/23 Alcohol intake: never Substance use: never Substance use type: does not use Living arrangements: with family Occupation/Education: occupation 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 Gender identity (if verbalized by the patient): Female Spiritual care concerns: No Meds Home Medications and Allergies Home Medications ?Medication ?Instructions ?Recorded ?Confirmed ?Type cholecalciferol (vitamin D3) 125 125 mcg PO DAILY 04/29/23 04/26/25 History mcg (5,000 unit) capsule aspirin 81 mg tablet,delayed 81 mg PO DAILY Stent for sigmoid 07/30/23 04/26/25 History release (Adult Low Dose Aspirin) sinus stenosis clotrimazole-betamethasone 1 1 applic topical BID #30 mL 05/20/24 04/26/25 Rx %-0.05 % lotion metformin 500 mg tablet,extended 500 mg PO DAILY #90 tabs 08/24/24 04/26/25 Rx release 24 hr estradiol-norethindrone acet 1 1 tablet PO DAILY 01/11/25 04/26/25 History mg-0.5 mg tablet (Activella) cyanocobalamin (vitamin B-12) 500 500 mcg PO DAILY 01/22/25 04/26/25 History mcg tablet valacyclovir 1 gram tablet 2,000 mg (2 x 1 gram) PO Q12H 03/03/25 04/26/25 Rx (Valtrex) Fever blister #4 tabs alprazolam 1 mg tablet 1 mg PO BID PRN anxiety #60 tabs 03/19/25 04/26/25 Rx albuterol sulfate 90 mcg/actuation 2 inh inhalation Q4H PRN shortness 04/07/25 04/26/25 Rx aerosol inhaler (Ventolin HFA) of breath or wheezing #6.7 grams lactobacillus combo no.11 15 1 cap PO DAILY 04/07/25 04/26/25 History billion cell sprinkle capsule (Probiotic) pantoprazole 40 mg tablet,delayed 40 mg PO QAM #60 tabs 04/07/25 04/26/25 Rx release polyethylene glycol 3350 17 8.5 g PO DAILY PRN constipation 04/07/25 04/26/25 History gram/dose oral powder (Miralax) spironolactone 100 mg tablet 100 mg PO DAILY 04/07/25 04/26/25 History Allergies Allergy/AdvReac Type Severity Reaction Status Date / Time escitalopram (From Lexapro) AdvReac Intermediate Anxiety Verified 04/26/25 08:30 dicyclomine AdvReac Blurry Verified 04/26/25 08:30 Vision/anticholinergic linaclotide (From Linzess) AdvReac Dehydration, Verified 04/26/25 08:30 sweats, presyncope phentermine AdvReac Jittery Verified 04/26/25 08:30 semaglutide (From Ozempic) AdvReac Nausea Verified 04/26/25 08:30 Exam Const: General: cooperative, healthy appearing, comfortable and overweight Orientation/consciousness: oriented to person, oriented to place and oriented to time Resp: Effort & Inspection: normal respiratory effort Cardio: Rate: regular rate Rhythm: regular rhythm Heart sounds: S1 normal heart sound present and S2 normal heart sound present GI: Inspection: normal to inspection Auscultation: normal bowel sounds : External Female Exam: normal external appearance Speculum Exam - Vagina: normal appearance of the vagina Speculum Exam - Cervix: Cervix absent Bimanual exam- vagina & uterus: uterus absent Bimanual Exam- Adnexa, other: tender bilaterally Assessment and Plan Assessment and plan (1) Pelvic pain: Code(s): R10.2 - Pelvic and perineal pain Status: Acute (2) Dyspareunia: Status: Acute Plan Will proceed with laparoscopy lysis of adhesions
[2025-04-29] VITALS (8 sets, daily range): BP systolic 96–103; BP diastolic 58–69; PULSE 66–97; RESP 16–20; TEMP 36.2–36.4; O2SAT 96–100
--- OUTSIDE RECORDS SUMMARY | 2025-04-29 03:03 | XMS_ITS | Clinical Summary ---
Author Organization [facility] Address [address] [place] [address] Care Team Providers Care Utility Clerk Name Role Phone Unavailable Primary Care Provider Unavailabl e Source Comments [facility],non-owned Affiliates and Associated Physician Practices is amultiple site organization consisting of ambulatory clinics and hospital sitesin [place], [place], [place] and [place]. This disclosure is being madepursuant to the Care Everywhere program and may not contain all information available regarding this patient. 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
--- OUTSIDE RECORDS SUMMARY | 2025-04-29 03:03 | XMS_ITS | Data Portability ---
Author [facility] Address [address] [place] [address] Assessment No assessment recorded. Plan of Treatment Reminders Order Date Submit Date Provider Last Modified By Organization Details Last Modified Time Details Appointments None recorded. Lab PPD (purified protein derivative) , skin test 2016 017 [id number] In-Office Order, Internal Use Only DO Not Attach Compendium DO Not Attach Compendium, Do Not Delete/merge, [id number] 16:33:54 Referral None recorded. Procedures None [...] DO Not Attach Compendium, Do Not Delete/merge, [id number] 04/03/2017 16:27:59 11/08/20 19 11/08/2019 strep tococ cus group A Ag scree n specimen type THROAT Not Available [facility] (Lab[facility] [place], [address], 11/08/2019 19:04:50 11/08/20 19 11/08/2019 strep tococ cus group A Ag scree n rapid strep A NEGATI VE neg Not Available [facility] (Lab) [address] [facility] [place], [address], 11/08/2019 19:04:50 11/08/20 19 11/09/2019 group A strep molec ular assay strep A molecular POSITI VE neg abnormal SPECI MEN POSIT OTF FOR GROUP A STREP TOCOC CUS BY DNA AMPLI FICAT ION Not Available [facility] (Lab) [address] [facility] [place], [address], 11/09/2019 17:54:27 Result Notes None recorded. Medical [...] Details Last Updated DateTime 7 157.48 cm 36228.8 9 g 26.5 kg/m2 72 /min 98.2 [degF] 110 mm[Hg] 72 mm[Hg] Ruby Oakley MA [place] - [facility] 7 14:40:05 Social History None recorded. Functional Status None recorded. Mental Status None recorded. Family History Nothing Reported. Medical History No medical history recorded. Gynecological HistoryNo gynecological history recorded. Obstetrics History GPAL:G 0 P 0 0 0 0 Past Encounters Encounter ID Performer Location Encounter Start Date Encounter Closed Date Diagnosis/Indication Diagnosis SNOMED-CT Code Diagnosis ICD10 Code Diagnosis Note [id number] Iman Mcclain [facility] [address] [place] [address] 04/01/2017 13:54:31 04/02/2017 10:56:35 History and physical examination, pre-employment [id number] Z02.1 assessment negative. no restrictio ns indicated. [...] Armstrong Member ID Guarantor Name 04/01/[address] [facility] (MEDICAID HMO) Halle Vasquez [id number] Halle Vasquez Notes Date Note Type Note Provider Name and Address Organization Details Recorded Time 04/01/2017 text/html Pt presents to clinic requesting employment physical. She denies nausea, vomiting, fever, chills, diarrhea, constipation and dysuria. Subha Stanford [facility], [place] - [place] 04/03/2017 16:28:34 OBGyn Episode No OBEpisode recorded.
--- OUTSIDE RECORDS SUMMARY | 2025-04-29 03:03 | XMS_ITS | Referral Summary ---
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 Gender Identity Not on file Sexual Orientation [...] 7:01 AM CDT Height 157.5 cm (5' 2) 02/04/2024 7:01 AM CDT Body Mass Index 30.73 02/04/2024 7:01 AM CDT Plan of Treatment Not on file Medical Devices Implanted Type Area Manager Talent Acquisition Device Identifier Shelf Expiration Date Model / Serial / Lot Pulmocide Zilver 518 Od8 Mm Odsec5 Fr L60 Mm L125 Cm Self Expandable Delivery System Rapid Exchange Flexor Introducer Multiple Screen Tacker Iliac Artery .018 In Stent Vascular Nitinol Sterile G4 Implanted:Qty: 1 on 07/23/2023 by Ivette García MD at [facility] Pulm[employer] 03/21/2026 [id number] / / [id number] Insurance [employer] [facility] [employer] OPTIONS [employer] Advance Directives For more information, please contact: [phone] * Full Code (Latest Code Status on File) Date Activated Date Inactivated Comments 02/04/2024 9:31 AM 02/05/2024 5:27 AM * Full Code Date Activated Date Inactivated Comments 07/23/2023 9:15 AM 07/24/2023 2:23 PM Care Teams National Facilities Manager Relationship Specialty Start Date End Date Uriel Joshi MD [address] [place] [address] PCP - General Family Medicine 11/30/22 Anil Henning DO [address] [facility] [address] [place] [address] Referring Physician Internal Medicine 12/20/22
--- OUTSIDE RECORDS SUMMARY | 2025-04-29 03:03 | XMS_ITS | Clinical Summary ---
Author Organization [employer] [address] [place] [address] Phone Care Team Providers Care Radiation Protection Engineer Name Role Phone Unavailable Primary Care Provider [...] for anxiety 60 Tablet 10/24/2024 4:49 PM MASH GRINDER 4 Active spironolactone (ALDACTONE) 100 mg tablet Take 1 Tablet (100 mg) by mouth 2 times daily. 90 Tablet 11/04/2024 5:37 PM MASH GRINDER 4 Active ALPRAZolam (XANAX) 1 mg tablet Take one tablet by mouth twice a day As Needed for anxiety 60 Tablet 12/09/2024 1:03 PM MASH GRINDER 5 Active est estrogens-meth ylTESTOSTERone (ESTRATEST H.S.) 0.625-1.25 mg tablet Take 1 Tablet by mouth daily. 90 Tablet 1 5 Active estradiol-nore thindrone Acet 1-0.5 mg tablet TAKE 1 TABLET BY MOUTH DAILY 90 Tablet 3 12/31/2024 5:25 PM MASH GRINDER 5 Active tirzepatide, weight loss, (Zepbound) 2.5 mg/0.5 mL Pen Injector Inject 2.5 mg by subcutaneous injection every 7 days. 2 mL 5 Active conjugated estrogens (Premarin) 1.25 mg tablet Take 1 Tablet (1.25 mg) by mouth daily. 90 Tablet 3 01/26/2025 6:19 PM MASH GRINDER 5 Active valACYclovir (VALTREX) 1 gram tablet Take 2 Tablets by mouth every 12 hours for fever blister 4 Tablet 03/03/2025 6:42 PM CDT 5 Active fluoride, sodium, (ETHEDENT) 1.1 % Cream Use as directed twice daily 51 Gram 5 Active albuterol sulfate HFA 90 mcg/actuation aerosol inhaler Inhale 2 puffs by mouth every 4 hours As Needed for shortness of breath or wheezing 6.7 Gram 04/12/2025 4:33 PM CDT 5 Active pantoprazole (PROTONIX) 40 mg Tablet, Delayed Release (E.C.) Take one tablet (40 mg) orally every morning; started in ER 04/01/2025 60 Tablet 5 Active ALPRAZolam (XANAX) 1 mg tablet Take 1 Tablet (1 mg) by mouth 2 times daily as needed for anxiety 60 Tablet 04/28/2025 3:10 PM CDT 5 Active metFORMIN (GLUCOPHAGE XR) 500 mg Extended Release 24 hour tablet Take 1 Tablet (500 mg) by mouth daily. 90 Tablet 04/28/2025 3:10 PM CDT 5 Active pantoprazole (PROTONIX) 40 mg Tablet, Delayed Release (E.C.) Take 1 Tablet (40 mg) by mouth every morning 90 Tablet 04/28/2025 3:10 PM CDT 5 Active spironolactone (ALDACTONE) 100 mg tablet Take 1 Tablet (100 mg) by mouth daily. 90 Tablet 04/28/2025 3:10 PM CDT 5 Active ALPRAZolam (XANAX) 1 mg tablet Take 1 Tablet (1 mg) by mouth 2 times daily as needed for anxiety 60 Tablet 03/24/2025 7:03 PM CDT 5 025 Discontin ued(Reord er) pantoprazole (PROTONIX) 40 mg Tablet, Delayed Release (E.C.) Take 1 tablet (40 mg total) by mouth daily. 28 Tablet 04/01/2025 5:32 PM CDT 5 025 Discontin ued(Reord er) Encounters Date Type Department Care Team Description 04/15/2025 External Device Data [facility] Provider, Abstract 04/13/2025 External Device Data [facility] Provider, Abstract 03/09/2025 External Device Data [facility] Provider, [...] ID:Not on file Type:Not on file Address: [facility] [employer] [facility]
--- OUTSIDE RECORDS SUMMARY | 2025-04-29 03:03 | XMS_ITS | Continuity of Care Document ---
Author Organization [facility] Address [address] [place] [address] Phone Care Team Providers Care Biomass Power Plant Manager Name Role Phone Unavailable Unavailable Unavailable Advance Directives Directive Yes / No Effective Date File Name No Information Encounters Encounter Description Practice Location Reason(s) For Visit Diagnoses Date Provider Providers Copied on Encounter [facility], [address], [place], [place], [id number], [place] tel:[phone] [facility] No Information No Information Referring Provider: AJIT Dale, [address], [place], [address]. tel:[phone] Family History Family Member Type Diagnosis Age At Onset No Information Payers Payer name Insurance type Covered green party ID Authoriza timag(s) [facility] [place] [id number] [facility] [id number] Social History Type Description Quantity Date Captured Comments Sex Female Smoking Status No Information Chief Complaint And Reason For Visit No Information History Of Present Illness Encounter Date Complaint History Of Prese nt Illness No Information Instructions Date Instruction Additional Infor mation No Information Assessments Type Assessment Date No Information
--- OUTSIDE RECORDS SUMMARY | 2025-04-29 03:03 | XMS_ITS | Clinical Summary ---
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 Gender Identity Not on file Sexual Orientation [...] this topic Medical Devices Implanted Type Area Excellence Leader Device Identifier Shelf Expiration Date Model / Serial / Lot [place] Zilver 518 Od8 Mm Odsec5 Fr L60 Mm L125 Cm Self Expandable Delivery System Rapid Exchange Flexor Introducer Multiple Renal Dialysis Technician Iliac Artery .018 In Stent Vascular Nitinol Sterile G4 Implanted:Qty: 1 on 07/23/2023 by Ivette García MD at [facility] [employer] 03/21/2026 [id number] / / [id number] Insurance [employer] Advance Directives For more information, please contact: [phone] * Full Code (Latest Code Status on File) Date Activated Date Inactivated Comments 02/04/2024 9:31 AM 02/05/2024 5:27 AM * Full Code Date Activated Date Inactivated Comments 07/23/2023 9:15 AM 07/24/2023 2:23 PM Care Teams Sales Vendor Relationship Specialty Start Date End Date Uriel Joshi MD [address] [place] [id number] PCP - General Family Medicine 11/30/22 Anil Henning DO [address] [facility] [address] [place] [address] Referring Physician Internal Medicine 12/20/22
[2025-04-29] MEDS: LACTATED RINGERS 1,000 ML 30 ML IV CONT ×2 (06:30→08:24)
--- NOTE | 2025-04-29 06:32 | WPDHPUPDATE1 ---
History and Physical Update Update Date/Time: 04/29/25 06:32 History and Physical has been reviewed, including an updated exam of the patient. There are NO changes in the patient's condition. Risks, benefits, and alternatives have been discussed and questions answered. Patient agrees to proceed with procedure.
--- NOTE | 2025-04-29 06:46 | WPDANESEPPF ---
Anes - Initial Pre Proc Eval Procedure: Operation Date: 04/29/25 07:30 Proposed Procedures p Laparoscopic Lysis of Pelvic Adhesion - Thanh Nazario MD Date/Time: 04/29/25 06:46 Surgeon: Thanh Nazario MD Pre Op Diagnosis: pelvic pain,dyspurenia, pelvic adhesion Patient Data Age: 39 Gender: F Height: 1.63 m Weight: 82.1 kg Allergies Allergy/AdvReac Type Severity Reaction Status Date / Time escitalopram (From Lexapro) AdvReac Intermediate Anxiety Verified 04/26/25 08:30 dicyclomine AdvReac Blurry Verified 04/26/25 08:30 Vision/anticholinergic linaclotide (From Linzess) AdvReac Dehydration, Verified 04/26/25 08:30 sweats, presyncope phentermine AdvReac Jittery Verified 04/26/25 08:30 semaglutide (From Ozempic) AdvReac Nausea Verified 04/26/25 08:30 Home Medications ?Medication ?Instructions ?Recorded ?Confirmed ?Type cholecalciferol (vitamin D3) 125 125 mcg PO DAILY 04/29/23 04/26/25 History mcg (5,000 unit) capsule aspirin 81 mg tablet,delayed 81 mg PO DAILY Stent for sigmoid 07/30/23 04/26/25 History release (Adult Low Dose Aspirin) sinus stenosis clotrimazole-betamethasone 1 1 applic topical BID #30 mL 05/20/24 04/26/25 Rx %-0.05 % lotion estradiol-norethindrone acet 1 1 tablet PO DAILY 01/11/25 04/26/25 History mg-0.5 mg tablet (Activella) cyanocobalamin (vitamin B-12) 500 500 mcg PO DAILY 01/22/25 04/26/25 History mcg tablet valacyclovir 1 gram tablet 2,000 mg (2 x 1 gram) PO Q12H 03/03/25 04/26/25 Rx (Valtrex) Fever blister #4 tabs albuterol sulfate 90 mcg/actuation 2 inh inhalation Q4H PRN shortness 04/07/25 04/26/25 Rx aerosol inhaler (Ventolin HFA) of breath or wheezing #6.7 grams lactobacillus combo no.11 15 1 cap PO DAILY 04/07/25 04/26/25 History billion cell sprinkle capsule (Probiotic) polyethylene glycol 3350 17 8.5 g PO DAILY PRN constipation 04/07/25 04/26/25 History gram/dose oral powder (Miralax) alprazolam 1 mg tablet 1 mg PO BID PRN anxiety #60 tabs 04/27/25 Rx metformin 500 mg tablet,extended 500 mg PO DAILY #90 tabs 04/27/25 Rx release 24 hr pantoprazole 40 mg tablet,delayed 40 mg PO QAM #90 tabs 04/27/25 Rx release spironolactone 100 mg tablet 100 mg PO DAILY #90 tabs 04/27/25 Rx hydrocodone 5 mg-acetaminophen 325 1 tablet PO Q4H PRN pain #20 tabs 04/29/25 Rx mg tablet Patient hx anesthesia problems: post op nausea/vomiting Family hx anesthesia problems: none Results Review: All pre-operative results and documents have been reviewed as part of the pre-operative evaluation. 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 H/O: hysterectomy Family History Family History Father Depression Heart disease Mother Cancer Depression Heart disease Social History Social History Years smoked: 5 Smoking status: Former smoker Tobacco type: cigarettes Smokeless tobacco user: chewing tobacco Smoking end date: 04/25/21 Alcohol intake: never Substance use: never Substance use type: does not use Living arrangements: with family Occupation/Education: 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 Informed Consent: The patient's anesthetic plan and its attendant risks and benefits were discussed with the patient/family/POA. Questions were solicited and answers provided to the satisfaction of the patient/family/POA.
[2025-04-29] MEDS: SCOPOLAMINE 1 MG PATCH 1 PATCH TRANSDERM (07:00)
[2025-04-29 07:21] LABS: Glucose Point of Care 85 mg/dl (65-105)
[2025-04-29] MEDS: KETOROLAC 15 MG/ML VIAL (*BKC) IV PUSH (07:27)
[2025-04-29] MEDS: ACETAMINOPHEN 500 MG TABLET 1000 MG PO (07:27)
--- NOTE | 2025-04-29 07:56 | W.PM.PROC2 ---
Procedure Note - Detailed Date of Procedure 04/29/25 Pre-op Diagnosis pelvic pain,dyspurenia, pelvic adhesion Post-op Diagnosis Other (Pelvic pain/endometriosis) Procedure Performed Laparoscopy with destruction of endometriosis Surgeon Thanh Nazario MD Anesthesia General Indications 39-year-old status post hysterectomy bilateral salpingectomy with pelvic pain Findings Absent uterus tubes. Normal-appearing ovaries bilaterally. Small areas of endometriosis along vaginal cuff. Normal-appearing appendix. Normal-appearing gallbladder. Description of Procedure Patient was prepped draped-the SPECT posterior. Sponge stick was placed bladder was emptied clear urine weighted speculum. The gloves were changed. A supraumbilical incision made the Veress needle passed in the abdomen. With CO2 gas to 15 of mercury. 5mm trocar advanced under direct visualization with the Optiview in no injury seen. Patient placed in Trendelenburg and a suprapubic incision made. 5mm probe trocar advanced under direct visualization assuring no injury. The pelvis was actually fairly free of any adhesions. Small area of endometriosis was seen along the vaginal cuff from the uterosacral ligament these were cauterized at 35 w per 2nd with monopolar cautery. Ovaries appeared within normal limits tubes and uterus were surgically absent. Irrigation was undertaken no other abnormalities were seen the appendix and liver and gallbladder were photo documented. The gas removed from the abdomen. The lower site. The upper site removed the incisions closed with 4 Monocryl glue. Patient went to recovery in satisfactory condition. All sponge, needle, instrument counts were correct. There were no immediate complications Estimated Blood Loss 5 Drains No Packing No Pathology None sent Complications No immediate complications Condition Stable Disposition PACU
[2025-04-29] MEDS: oxyCODONE HCL (*CRX) 5 MG TAB IR PO (09:20)
[2025-04-29] MEDS: ONDANSETRON INJ 4 MG/2 ML VIAL IV PUSH (09:20)
== END | disposition home or self-care (01) ==
PROVIDERS: PCP Physician Assistant Medical; Visit Provider Obstetrics & Gynecology
PROC: (CPT 49320; principal; 2025-04-29 07:30)
DX: N80.42 Endometriosis of rectovaginal septum with involvement of vagina (principal); E55.9 Vitamin D deficiency, unspecified; E53.8 Deficiency of other specified B group vitamins; F41.9 Anxiety disorder, unspecified; F17.220 Nicotine dependence, chewing tobacco, uncomplicated; E66.9 Obesity, unspecified; Z68.31 Body mass index [BMI] 31.0-31.9, adult; Z79.82 Long term (current) use of aspirin; Z79.84 Long term (current) use of oral hypoglycemic drugs; Z79.51 Long term (current) use of inhaled steroids; Z79.891 Long term (current) use of opiate analgesic; Z98.890 Other specified postprocedural states; Z95.828 Presence of other vascular implants and grafts; Z80.9 Family history of malignant neoplasm, unspecified; Z82.49 Family history of ischemic heart disease and other diseases of the circulatory system
CPT/HCPCS: 58662; 36415; 82948; 86850; 86900; 86901; A9270; J1885; J2250; J2405; J3010; J7030; J7120